=== PATIENT | female | born 1940 | race Caucasian/White ===

== ENCOUNTER → 2016-08-22 | Day surgery (SDC) | payer OTHER, MEDICARE ==
[2016-08-11 12:24] VITALS: Ht 163.8 cm; Wt 79.5 kg
[~2016-08-22] VITALS: Ht 163.8 cm; Wt 79.5 kg
[~2016-08-22] MED LIST: ACET-1256 PO; CHOL1TAB42 PO; CZR50 PO; ISOS30TA3 PO; LPT10 PO; METOPROLOL TARTRATE 1 MG/ML VIAL ONE; PROPOFOL IV EMULSION 10 MG/ML 20 ML VIAL IV ONE; SODIUM CHLORIDE 0.9% 500ML 500 ML IV ONE; TPRSR50 PO; ZNTT/150 PO
[2016-08-22 09:59] VITALS: TEMP 36.6
--- NOTE | 2016-08-22 10:33 | Endo History and Physical ---
History & Physical Date of Service: Aug 22, 2016. Chief Complaint: DYSPHAGIA, REFLUX Referring Physician: DR. CAMERON History of Present Illness 76 yo CF who presents for EGD secondary to dysphagia and GERD. Past Medical History Angioplasty/Stent, Anxiety, Cancer, Hypertension, Thrombophlebitis, Other Past Surgical History Hx Cardiac Surgery: Yes (HEART CATH, STENT X1) Hx Internal Defibrillator: No Hx Pacemaker: No Hx Abdominal Surgery: Yes (D&C X3, SHAWNA BSO, TUBAL LIGATION) Hx of Implantable Prosthesis: No Hx Post-Op Nausea and Vomiting: No Hx Cancer Surgery: Yes (SCC REMOVALS AND MOHS) Hx Thoracic Surgery: No Hx Orthopedic: Yes (LT/RT BALBIR, LT LEG REVISION, LT/RT KNEE SURGERY, LT BUNIONECTOMY, RT WRIST) Hx Urinary Tract Surgery: No (CERVICAL DISCECTOMY (LIMITED L-R)) Family History None Social History Smoking Status: Never Smoker Hx Substance Use: No Hx Alcohol Use: Yes (OCCASIONAL) Allergies Coded Allergies: Codeine (Verified Allergy, Severe, HIVES/DIFFICULTY BREATHING, 08/11/16) Sulfa Drugs (Verified Allergy, Intermediate, GI UPSET AND VIOLENT VOMITING , 08/22/16) Tetanus Toxoids (Verified Allergy, Intermediate, SEVERE HIVES AND THROAT CLOSING, 08/22/16) WITH "LIVE TETANUS" Aspirin (Verified Allergy, Unknown, "EYE HEMORRHAGES", 08/11/16) Atropine (Verified Allergy, Unknown, HEART RACES, 08/11/16) Diazepam (Verified Allergy, Unknown, "PASSED OUT COLD", 08/11/16) Ibuprofen (Verified Allergy, Unknown, "TOLD NOT TO TAKE BECAUSE OF HEART" , 08/11/16) Lidocaine (Verified Allergy, Unknown, UNABLE TO BREATHE, 08/11/16) Penicillins (Verified Allergy, Unknown, HIVES, 08/11/16) Pentazocine (Verified Allergy, Unknown, GI UPSET, 08/11/16) Propoxyphene (Verified Allergy, Unknown, "KNOCKED ME RIGHT OUT", 08/11/16) DARVOCET Uncoded Allergies: NARCOTIC (Adverse Reaction, Intermediate, nausea/vomitng, 06/11/14) Current Medications Reported Home Medications Medications Dose Route/Sig Max Daily Dose Days Date Category Metoprolol Succinate ER (Metoprolol Succinate) 50 Mg Tabcr 1 Tab PO QPM 08/11/16 Reported Atorvastatin Calcium (Atorvastatin) 10 Mg Tab 10 Mg PO QPM 02/15/15 Reported Tylenol (Acetaminophen) 500 Mg Tab 1,000 Mg PO TID PRN 02/15/15 Reported Zantac (Ranitidine HCl) 150 Mg Tab 150 Mg PO QPM 10/27/14 Reported Losartan Potassium 50 Mg Tab 50 Mg PO QAM 07/02/14 Reported Vitamin D (Cholecalciferol) 5,000 Unit Tab 5,000 Units PO QAM 07/02/14 Reported Imdur Ext Rel (Isosorbide Mononitrate) 30 Mg Ertab 30 Mg PO QAM 03/23/11 Reported Vital Signs Weight (Kilograms): 79.55 Height (Feet): 5 Height (Inches): 4.5 Date Time Temp Pulse Resp B/P Pulse Ox O2 Delivery O2 Flow Rate FiO2 08/22/16 09:59 36.6 90 20 148/93 98 Room Air Physical Exam General Appearance: WD/WN, no apparent distress Respiratory/Chest: Auscultation: breath sounds normal Cardiovascular: Heart Auscultation: RRR Abdomen: Bowel Sounds: normal Inspection & Palpation: soft, non-distended, no tenderness, guarding & rebound Assessment and Plan Assessment: 76 yo CF who presents for EGD secondary to dysphagia and GERD. Plan: Proceed with EGD.
--- NOTE | 2016-08-22 10:49 | Discharge Instructions ---
Endoscopy Patient Instructions Date / Procedure(s) Performed Aug 22, 2016. Allergy Information Coded Allergies: Codeine (Verified Allergy, Severe, HIVES/DIFFICULTY BREATHING, 08/11/16) Sulfa Drugs (Verified Allergy, Intermediate, GI UPSET AND VIOLENT VOMITING , 08/22/16) Tetanus Toxoids (Verified Allergy, Intermediate, SEVERE HIVES AND THROAT CLOSING, 08/22/16) WITH "LIVE TETANUS" Aspirin (Verified Allergy, Unknown, "EYE HEMORRHAGES", 08/11/16) Atropine (Verified Allergy, Unknown, HEART RACES, 08/11/16) Diazepam (Verified Allergy, Unknown, "PASSED OUT COLD", 08/11/16) Ibuprofen (Verified Allergy, Unknown, "TOLD NOT TO TAKE BECAUSE OF HEART" , 08/11/16) Lidocaine (Verified Allergy, Unknown, UNABLE TO BREATHE, 08/11/16) Penicillins (Verified Allergy, Unknown, HIVES, 08/11/16) Pentazocine (Verified Allergy, Unknown, GI UPSET, 08/11/16) Propoxyphene (Verified Allergy, Unknown, "KNOCKED ME RIGHT OUT", 08/11/16) DARVOCET Uncoded Allergies: NARCOTIC (Adverse Reaction, Intermediate, nausea/vomitng, 06/11/14) Discharge Date / Findings Aug 22, 2016. Hiatal hernia Reflux esophagitis Esophageal stricture s/p dilation to 17mm Medication Instructions OK to resume all medications today as prescribed Reported Home Medications Medications Dose Route/Sig Max Daily Dose Days Date Category Metoprolol Succinate ER (Metoprolol Succinate) 50 Mg Tabcr 1 Tab PO QPM 08/11/16 Reported Atorvastatin Calcium (Atorvastatin) 10 Mg Tab 10 Mg PO QPM 02/15/15 Reported Tylenol (Acetaminophen) 500 Mg Tab 1,000 Mg PO TID PRN 02/15/15 Reported Zantac (Ranitidine HCl) 150 Mg Tab 150 Mg PO QPM 10/27/14 Reported Losartan Potassium 50 Mg Tab 50 Mg PO QAM 07/02/14 Reported Vitamin D (Cholecalciferol) 5,000 Unit Tab 5,000 Units PO QAM 07/02/14 Reported Imdur Ext Rel (Isosorbide Mononitrate) 30 Mg Ertab 30 Mg PO QAM 03/23/11 Reported Provider Instructions Activity Restrictions - No exercising or heavy lifting for 24 hours. - Do not drink alcohol the day of the procedure. - Do not drive a car or operate machinery until the day after the procedure. - Do not make any important decisions or sign important papers in 24 hours after the procedure. Following Day: - Return to full activity which may include returning to work/school. Diet Start your diet with liquids and light foods (jello, soup, juice, toast). Then eat your usual diet if not nauseated. Treatment For Common After Affects For mild abdominal pain, bloating, or excessive gas: - Rest - Eat lightly - Lie on right side Follow-Up Information Follow-up with DR. CAMERON as scheduled Anesthesia Information What You Should Know You have had a procedure that required some medicine to reduce anxiety and discomfort. This treatment is called moderate sedation. After receiving the treatment, you may be sleepy, but you will be able to breathe on your own. The effects of the treatment may last for several hours. Follow these instructions along with Activity/Diet recommendations noted above: * Do NOT do anything where dizziness or clumsiness would be dangerous. * Rest quietly at home today, then you can be up and about tomorrow. * Have a responsible person stay with you the rest of today. * You may have had an I.V. today. If so, you may take the dressing off later today. Recommendations Call your doctor if: * Trouble breathing * Continuous vomiting for more than 24 hours * Temperature above 101 degrees * Severe abdominal pain or bloating * Pain not relieved by pain medicine ordered * There is increased drainage or redness from any incision * A large amount of rectal bleeding greater than 2-3 tablespoons. (If you had a polyp/s removed or have hemorrhoids, a small amount of blood - from the rectum is to be expected.) * You have any unanswered questions or concerns. IN THE EVENT OF A SERIOUS EMERGENCY, GO TO THE NEAREST EMERGENCY ROOM Your discharge instructions were prepared by provider Lemuel Harrison. Patient Instructions Signature Page Ana Choudhury Patient (or Guardian) Signature/Date: I have read and understand the instructions given to me by my caregivers. Caregiver/RN/Doctor Signature/Date: The above-named patient and/or guardian has received patient instructions on this date. + Original Patient Signature Page (only) stays with chart. Please make copy for patient.
--- NOTE | 2016-08-22 10:53 | GI REPORT ---
Procedure Date: 08/22/2016 10:34 AM Procedure: Upper GI endoscopy Indications: Dysphagia, Gastro-esophageal reflux disease Medicines: Monitored Anesthesia Care Complications: No immediate complications. Estimated Blood Loss: Estimated blood loss: none. Procedure: Pre-Anesthesia Assessment: - Prior to the procedure, a History and Physical was performed, and patient medications and allergies were reviewed. The patient's tolerance of previous anesthesia was also reviewed. The risks and benefits of the procedure and the sedation options and risks were discussed with the patient. All questions were answered, and informed consent was obtained. Prior Anticoagulants: The patient has taken no previous anticoagulant or antiplatelet agents. ASA Grade Assessment: III - A patient with severe systemic disease. After reviewing the risks and benefits, the patient was deemed in satisfactory condition to undergo the procedure. After obtaining informed consent, the endoscope was passed under direct vision. Throughout the procedure, the patient's blood pressure, pulse, and oxygen saturations were monitored continuously. The scope was introduced through the mouth, and advanced to the second part of duodenum. The upper GI endoscopy was accomplished without difficulty. The patient tolerated the procedure well. Findings: One moderate benign-appearing, intrinsic stenosis was found. This measured 1.5 cm (inner diameter) x 1 cm (in length) and was traversed. A guidewire was placed and the scope was withdrawn. Dilation was performed with a Savary dilator with mild resistance at 51 Fr. LA Grade B (one or more mucosal breaks greater than 5 mm, not extending between the tops of two mucosal folds) esophagitis with no bleeding was found. A medium-sized hiatus hernia was present. A few small sessile polyps with no stigmata of recent bleeding were found in the gastric fundus. The examined duodenum was normal. Impression: - Benign-appearing esophageal stenosis. Dilated. - LA Grade B reflux esophagitis. - Medium-sized hiatus hernia. - A few gastric polyps. - Normal examined duodenum. - No specimens collected. Recommendation: - Resume previous diet. - Continue present medications. - Repeat the upper endoscopy PRN for retreatment. - Return to primary care physician as previously scheduled. Lemuel Harrison DO 08/22/2016 10:52:45 AM This report has been signed electronically. Note Initiated On: 08/22/2016 10:34 AM I attest to the content of the Intraoperative Record and orders documented therein, exceptions below
--- NOTE | 2016-08-22 11:08 | Anesthesiology Progress Note ---
Anesthesia Post Op Note Date & Time Aug 22, 2016 at 11:08 Vital Signs Pain Intensity: 0 Vital Signs Past 12 Hours Date Time Temp Pulse Resp B/P Pulse Ox O2 Delivery O2 Flow Rate FiO2 08/22/16 11:00 63 20 115/73 97 Room Air 08/22/16 10:50 68 20 122/66 96 Room Air 08/22/16 09:59 36.6 90 20 148/93 98 Room Air Notes Mental Status: alert / awake / arousable, participated in evaluation Pt Amnestic to Procedure: Yes Nausea / Vomiting: adequately controlled Pain: adequately controlled Airway Patency, RR, SpO2: stable & adequate BP & HR: stable & adequate Hydration State: stable & adequate Anesthetic Complications: no major complications apparent Pt doing well.
[2016-08-22 11:20] VITALS: BP 148/100; PULSE 64; O2SAT 94
== END | disposition home or self-care (01) ==
LOC: C.GI 09:30
PROVIDERS: ATTEND Internal Medicine
DX: K21.0 Gastro-esophageal reflux disease with esophagitis (principal); R13.10 Dysphagia, unspecified; K22.2 Esophageal obstruction; K44.9 Diaphragmatic hernia without obstruction or gangrene; K31.7 Polyp of stomach and duodenum; I10 Essential (primary) hypertension; Z95.5 Presence of coronary angioplasty implant and graft

== ENCOUNTER → 2017-04-10 | Outpatient (CLI) | payer OTHER, MEDICARE ==
[~2017-04-10] MED LIST changes: +GADAVIST IV PRN; -METOPROLOL TARTRATE 1 MG/ML VIAL ONE; -PROPOFOL IV EMULSION 10 MG/ML 20 ML VIAL IV ONE; -SODIUM CHLORIDE 0.9% 500ML 500 ML IV ONE
[2017-04-10 15:36] LABS: BASO % 0.4 %; BASO ABS # 0.02 K/uL (0-0.2); COMPLETE YES; EOS % 1.7 %; HEMATOCRIT 35.8 % (37-47); IG% 0.2 %; LYMPH % 20.7 %; LYMPH ABS # 0.98 K/uL (1.2-3.4); MEAN CORPUSCULAR HEMOGLOBIN 30.4 pg (25-34); MEAN CORPUSCULAR HGB CONC 32.7 g/dl (32-36); MEAN PLATELET VOLUME 10.3 fL (7.4-10.4); MONO % 9.5 %; NEUT % 67.5 %; PLATELET COUNT 237 K/uL (130-400); RED BLOOD COUNT 3.85 M/uL (4.2-5.4); WHITE BLOOD COUNT 4.74 K/uL (4.8-10.8)
--- NOTE | 2017-04-10 16:33 | DIAGNOSTIC IMAGING REPORT ---
MRI OF THE BRAIN WITHOUT AND WITH IV CONTRAST CLINICAL HISTORY: R41.3 Memory loss or [id number] Abnormality of [id number] SKIN CARCINOMA COMPARISON STUDY: Noncontrast head CT dated 02/15/2015 TECHNIQUE: MRI of the brain was performed from the vertex to the skull base utilizing various T1 and T2 weighted sequences. Following the IV administration of 7.8 mL of Gadavist contrast, additional enhanced images were obtained. FINDINGS: Sagittal T1, axial diffusion, proton density and T2 weighted axial, coronal FLAIR, and pre and post axial T1-weighted images were acquired. These were supplemented with post gadolinium coronal T1 weighted images. No intra or extra-axial mass lesions are visualized. Axial diffusion-weighted images reveal no evidence of acute or subacute infarction. There is mild ventricular dilatation, likely secondary to volume loss Proton density T2-weighted and FLAIR images reveal scattered foci of increased T2 signal within the white matter, likely on a small vessel basis. There are no abnormal flow voids. There is no evidence of pathologic enhancement. IMPRESSION: No acute intracranial findings. Age-related involutional changes. No evidence of acute or subacute infarction. No evidence of intracranial mass. Electronically signed by: Zac Ennis M.D. 04/10/2017 4:32 PM Dictated Date/Time: 04/10/2017 4:30 PM
[2017-04-10 16:42] LABS: LYME DISEASE AB IGG NEG (NEG)
[2017-04-10 16:48] LABS: LYME DISEASE AB IGM POS (NEG)
[2017-04-10 16:55] LABS: BLOOD UREA NITROGEN 20 mg/dl (7-18); CREATININE 0.59 mg/dl (0.60-1.20); GLUCOSE 92 mg/dl (70-99)
[2017-04-10 16:56] LABS: ALKALINE PHOSPHATASE 64 U/L (45-117); ALT/SGPT 24 U/L (12-78); AST/SGOT 12 U/L (15-37); BUN/CREATININE RATIO 33.3 (10-20); CALCIUM 8.6 mg/dl (8.5-10.1); CARBON DIOXIDE 28 mmol/L (21-32); CHLORIDE 102 mmol/L (98-107); POTASSIUM 3.8 mmol/L (3.5-5.1); SODIUM 136 mmol/L (136-145)
== END | disposition home or self-care (01) ==
LOC: C.MRI 13:48
PROVIDERS: ATTEND Psychiatry & Neurology Neurology
DX: R41.3 Other amnesia (principal); R26.9 Unspecified abnormalities of gait and mobility; S09.90XD Unspecified injury of head, subsequent encounter; X58.XXXD Exposure to other specified factors, subsequent encounter

== ENCOUNTER → 2017-05-17 | Outpatient (CLI) | payer OTHER, MEDICARE ==
[~2017-05-17] MED LIST changes: -GADAVIST IV PRN; +METO25TA3 PO; +OXYB5TAB PO; +PANT40TA PO; +RANI150T85 PO; -ZNTT/150 PO
== END | disposition home or self-care (01) ==
LOC: C.LABSPEC 17:01
PROVIDERS: ATTEND Nurse Practitioner Adult Health
DX: R39.15 Urgency of urination (principal)

== ENCOUNTER → 2017-06-08 | Outpatient (CLI) | payer OTHER, MEDICARE ==
[~2017-06-08] MED LIST changes: -METO25TA3 PO; -OXYB5TAB PO; -PANT40TA PO; -RANI150T85 PO; +ZNTT/150 PO
--- NOTE | 2017-06-08 16:04 | DIAGNOSTIC IMAGING REPORT ---
LUMBAR SPINE MRI HISTORY: LUMBAR PAIN TECHNIQUE: Multiplanar multisequence MRI of the lumbar spine was performed without the use of contrast. COMPARISON: Lumbar spine CT 02/15/2015. FINDINGS: For the purpose of the report the L5-S1 disc space will be located on axial image 23 of 25. Moderate levoscoliosis, unchanged. Moderate to space are at L1-L2 and L5-S1. Moderate to severe disc space narrowing at L2-L3, L3-L4, L4-L5. Moderate to severe facet osteoarthritis within the mid to lower lumbar spine. Partially visualized 2 cm exophytic cyst within the right kidney. The conus terminates at the L1-L2 disc space level. No fractures within the lumbar spine. There is 4 mm of anterolisthesis of L5 on S1, unchanged. L1-L2: Broad-based posterior disc bulge with ligamentum and facet hypertrophy resulting in moderate central canal and moderate left neural foraminal narrowing. There are severe right neural foraminal narrowing. L2-L3: Small broad-based posterior disc bulge with facet hypertrophy resulting in mild central canal narrowing. There is moderate to severe right-sided neural foraminal narrowing. L3-L4: Broad-based posterior disc bulge with ligamentum and facet hypertrophy resulting in severe central canal and severe right-sided neural foraminal narrowing. There is moderate left-sided neural foraminal narrowing. The central canal measures a maximal diameter of 4.5 mm. L4-L5: Small broad-based posterior disc bulge resulting in mild central canal and mild right-sided neural foraminal narrowing. There is moderate to severe left-sided neural foraminal narrowing. L5-S1: Small broad-based posterior disc bulge resulting in mild central canal and mild right neural foraminal narrowing. There is moderate to severe left-sided neural foraminal narrowing. IMPRESSION: 1. No fractures identified within the lumbar spine. 2. Stable grade I anterolisthesis of L5 on S1. 3. Advanced degenerative changes as described above with multilevel central canal or neural foraminal narrowing. This is most pronounced at the L3-L4 level. 4. Moderate levoscoliosis. Electronically signed by: Larry Chavez M.D. 06/08/2017 4:03 PM Dictated Date/Time: 06/08/2017 3:54 PM
== END | disposition home or self-care (01) ==
LOC: C.MRIBC 14:51
PROVIDERS: ATTEND Psychiatry & Neurology Neurology
DX: M43.16 Spondylolisthesis, lumbar region (principal); M47.26 Other spondylosis with radiculopathy, lumbar region; M48.061 Spinal stenosis, lumbar region without neurogenic claudication; M51.36 Other intervertebral disc degeneration, lumbar region; M41.80 Other forms of scoliosis, site unspecified

== ENCOUNTER → 2017-06-20 | Outpatient (CLI) | payer OTHER, MEDICARE | END | disposition home or self-care (01) | LOC: C.PAPS 14:52 | PROVIDERS: ATTEND Obstetrics & Gynecology | DX: Z12.72 Encounter for screening for malignant neoplasm of vagina (principal); Z90.710 Acquired absence of both cervix and uterus ==

== ENCOUNTER → 2017-09-11 | Outpatient (CLI) | payer OTHER, MEDICARE ==
[~2017-09-11] MED LIST changes: +METO25TA3 PO; +PANT40TA PO; +RANI150T85 PO; -ZNTT/150 PO
[2017-09-11 10:04] LABS: BASO % 0.6 %; BASO ABS # 0.02 K/uL (0-0.2); EOS % 2.4 %; EOS ABS # 0.08 K/uL (0-0.5); HEMATOCRIT 35.2 % (37-47); HEMOGLOBIN 12.1 g/dL (12.0-16.0); LYMPH % 24.9 %; LYMPH ABS # 0.82 K/uL (1.2-3.4); MEAN CELL VOLUME 88.4 fL (80-100); MEAN CORPUSCULAR HEMOGLOBIN 30.4 pg (25-34); MEAN CORPUSCULAR HGB CONC 34.4 g/dl (32-36); MEAN PLATELET VOLUME 9.8 fL (7.4-10.4); MONO % 10.6 %; MONO ABS # 0.35 K/uL (0.11-0.59); NEUT % 61.5 %; NEUT ABS # 2.02 K/uL (1.4-6.5); PLATELET COUNT 251 K/uL (130-400); RED CELL DISTRIBUTION WIDTH CV 13.9 % (11.5-14.5); RED CELL DISTRIBUTION WIDTH SD 45.5 fL (36.4-46.3); WHITE BLOOD COUNT 3.29 K/uL (4.8-10.8)
--- NOTE | 2017-09-11 10:32 | DIAGNOSTIC IMAGING REPORT ---
DOUBLE CONTRAST BARIUM ESOPHAGRAM CLINICAL HISTORY: Hiatal hernia. COMPARISON STUDY: No priors.. TECHNIQUE: A standard air contrast barium esophagram is performed. Multiple spot images of the esophagus are acquired both upright and prone. FINDINGS: The patient swallowed barium and the barium pill without difficulty. The mucosal pattern is normal. Mild to moderate dysmotility is seen in the mid to distal esophagus. There is no evidence of intrinsic or extrinsic mass lesion. No aspiration was seen. The gastroesophageal junction distended normally. No gastroesophageal reflux could be elicited by having the patient perform the Valsalva maneuver. A small hiatal hernia is noted. Extensive fusion hardware is seen throughout the cervical spine. Fluoroscopy time: 1.3 minutes. Fluoroscopic images: 21 IMPRESSION: 1. Esophageal dysmotility. The esophagus is otherwise normal in appearance. 2. Small hiatal hernia. Electronically signed by: Mitesh Monk M.D. 09/11/2017 10:31 AM Dictated Date/Time: 09/11/2017 10:28 AM
[2017-09-11 10:33] LABS: BLOOD UREA NITROGEN 15 mg/dl (7-18); CARBON DIOXIDE 22 mmol/L (21-32); CREATININE 0.63 mg/dl (0.60-1.20); GLUCOSE 102 mg/dl (70-99); POTASSIUM 3.7 mmol/L (3.5-5.1); SODIUM 135 mmol/L (136-145)
== END | disposition home or self-care (01) ==
LOC: C.RAD 09:14
PROVIDERS: ATTEND Physician Assistant
DX: K44.9 Diaphragmatic hernia without obstruction or gangrene (principal)

== ENCOUNTER 2017-09-20 05:53 | Observation (INO) | payer OTHER, MEDICARE ==
[2017-09-12 16:06] VITALS: BMI 26.0
[2017-09-20] VITALS (7 sets, daily range): BP systolic 123–187; BP diastolic 72–109; PULSE 74–85; TEMP 36.4–36.6; O2SAT 94–97; Ht 167.6 cm; Wt 76.0 kg
[~2017-09-20] VITALS: Ht 167.6 cm; Wt 76.0 kg
[~2017-09-20 05:53] MED LIST changes: -TPRSR50 PO
[2017-09-20] MEDS ORDERED: LACTATED RINGER'S 1000ML 1,000 ML IV SCH (06:00)
[2017-09-20] MEDS ORDERED: OXYB5TAB PO (06:30)
--- NOTE | 2017-09-20 06:31 | History & Physical Bridge Note ---
H&P Re-Evaluation Bridge Note: I have examined the patient, reviewed the History & Physical and in the interval since the performance of the History & Physical I have noted the following changes of clinical significance: No changes noted
[2017-09-20] MEDS ORDERED: MIDAZOLAM HCL 1 MG/ML 2ML VIAL ONE (06:43)
[2017-09-20] MEDS ORDERED: PHENYLEPHRINE HCL INJ 10 MG/ML VIAL ONE (06:43)
[2017-09-20] MEDS ORDERED: LIDOCAINE HCL 2% 2 ML VIAL (20MG/ML) ONE (06:43)
[2017-09-20] MEDS ORDERED: PROPOFOL IV EMULSION 10 MG/ML 20 ML VIAL ONE ×2 (06:43→08:07)
[2017-09-20] MEDS ORDERED: NEOSTIGMINE METHYLSULFATE 5 MG/5 ML SYR ONE (06:43)
[2017-09-20] MEDS ORDERED: GLYCOPYRROLATE INJ 0.2 MG/ML VIAL ONE (06:43)
[2017-09-20] MEDS ORDERED: FENTANYL CITRATE INJ 50 MCG/1 ML 2 ML VIAL ONE ×4 (06:43→12:29)
[2017-09-20] MEDS ORDERED: ROCURONIUM BROMIDE 10 MG/ML 5 ML VIAL ONE ×3 (06:43→08:54)
[2017-09-20] MEDS ORDERED: DEXAMETHASONE SOD INJ 4 MG/ML VIAL ONE (06:43)
[2017-09-20] MEDS ORDERED: EpHEDrine SULFATE INJ 50 MG/ML AMP ONE (06:43)
[2017-09-20] MEDS ORDERED: ONDANSETRON INJ 2 MG/ML 2 ML VIAL ONE (06:43)
[2017-09-20] MEDS ORDERED: LABETALOL HCL IV 5 MG/ML 20ML ONE (08:43)
--- NOTE | 2017-09-20 10:59 | [facility] Post Operative Brief Note ---
Immediate Operative Summary Operative Date September 20, 2017. Pre-Operative Diagnosis Hiatal Hernia Post-Operative Diagnosis Same Procedure(s) Performed Robotic assisted Laparoscopic repair of hiatal Hernia with Reinforced using Ovitex Patch Toupet partial fundoplication Esophagogastroduodenoscopy Surgeon Dr Hardy Dispatcher Clerk Surgeon(s) Geovany Bowles PA-C Estimated Blood Loss 20ml Findings Consistent with Post-Op Diagnosis Specimens A. Hernia sac B. Gastro esophageal fat pad Drains None Anesthesia Type General
[2017-09-20] MEDS ORDERED: METOCLOPRAMIDE HCL INJ 5 MG/ML 2 ML VIAL IV. STA (11:15)
[2017-09-20] MEDS ORDERED: ONDANSETRON INJ 2 MG/ML 2 ML VIAL IV PRN ×2 (11:15→11:45)
[2017-09-20] MEDS ORDERED: MEPERIDINE HCL 25 MG/ML CARP IV PRN (11:45)
[2017-09-20] MEDS ORDERED: FENTANYL CITRATE INJ 50 MCG/1 ML 2 ML VIAL IV PRN (11:45)
[2017-09-20] MEDS ORDERED: LABETALOL HCL IV 5 MG/ML 20ML IV PRN (11:45)
[2017-09-20] MEDS ORDERED: HYDROmorphone INJ 0.5 MG/0.5 ML SYR IV PRN (11:45)
[2017-09-20] MEDS ORDERED: EpHEDrine SULFATE INJ 50 MG/ML AMP IV PRN (11:45)
[2017-09-20] MEDS ORDERED: NITROGLYCERIN 0.4 MG SL PER TAB CHARGE ONE (12:55)
[2017-09-20] MEDS ORDERED: NITROGLYCERIN 2% OINTMENT 30GM TUBE EXT ONE ×2 (13:21→14:00)
[2017-09-20] MEDS ORDERED: HYDROmorphone INJ 2 MG/ML SYR/VIAL ONE (13:29)
--- NOTE | 2017-09-20 13:45 | DIAGNOSTIC IMAGING REPORT ---
CHEST ONE VIEW PORTABLE CLINICAL HISTORY: 77 years-old Female presenting with chest pain. TECHNIQUE: Portable upright AP view of the chest was obtained. COMPARISON: 07/02/2014. FINDINGS: Atherosclerosis of the aortic arch. Cardiac silhouette normal in size. Heterogeneity of lung parenchyma. Minimal linear opacities at the right lung base and left midlung. Minimal right apical opacities also suggested, which likely relates to superimposed soft tissue emphysema. No large pleural effusion or pneumothorax. Soft tissue emphysema noted at the right base of the neck with redemonstration of postsurgical changes of anterior cervical fusion hardware. Redemonstration of buttress plate and screw fixation of the left humerus. Upper abdomen normal. IMPRESSION: 1. Soft tissue emphysema at the right base of the neck. Although no pneumomediastinum is grossly apparent, the etiology of soft tissue in the neck is uncertain. Correlate clinically for recent intervention. If no intervention was performed, consider contrast-enhanced chest CT for further evaluation. 2. Cardiomegaly. No evidence of volume overload or pulmonary edema. 3. Heterogeneity of lung parenchyma could suggest underlying emphysema. 4. Scattered linear opacities at the right lung base and left midlung may represent atelectasis or scarring. Electronically signed by: Sam Chao M.D. 09/20/2017 1:44 PM Dictated Date/Time: 09/20/2017 1:41 PM
[2017-09-20] MEDS ORDERED: METOPROLOL TARTRATE 1 MG/ML VIAL ONE (14:08)
--- NOTE | 2017-09-20 14:28 | Anesthesiology Progress Note ---
Anesthesia Post Op Note Date & Time September 20, 2017 at 14:19 Vital Signs Pain Intensity: 7 Vital Signs Past 12 Hours Date Time Temp Pulse Resp B/P (MAP) Pulse Ox O2 Delivery O2 Flow Rate FiO2 09/20/17 14:11 76 171/95 09/20/17 13:45 72 16 153/91 100 Oxymask 10 09/20/17 13:35 72 16 166/100 100 Oxymask 10 09/20/17 13:25 36.2 73 16 191/97 100 Oxymask 10 09/20/17 13:15 75 16 189/103 100 Oxymask 10 09/20/17 13:05 70 16 189/106 100 Oxymask 10 09/20/17 12:55 68 16 174/97 100 Oxymask 10 09/20/17 12:45 71 16 180/87 100 Oxymask 10 09/20/17 12:35 67 16 166/90 100 Oxymask 10 09/20/17 12:25 67 16 172/94 100 Oxymask 10 09/20/17 12:15 36.2 69 16 152/81 100 Nasal Cannula 4 09/20/17 12:05 36.2 72 16 177/90 100 Oxymask 10 09/20/17 11:55 68 16 144/94 97 Oxymask 10 09/20/17 11:45 70 16 173/96 99 Oxymask 10 09/20/17 11:35 69 16 156/87 99 Oxymask 10 09/20/17 11:26 36.0 63 16 146/84 95 Oxymask 10 09/20/17 06:32 36.6 80 20 149/92 (111) 95 Room Air Notes Mental Status: alert / awake / arousable, participated in evaluation Pt Amnestic to Procedure: Yes Nausea / Vomiting: adequately controlled Pain: adequately controlled Airway Patency, RR, SpO2: stable & adequate BP & HR: stable & adequate Hydration State: stable & adequate Anesthetic Complications: no major complications apparent Pt had laparoscopic Jacinto fundoplication under GA without incident. After arrival in PACU, pt c/o chest pain and dyspnea. She described pain as severe and squeezing. 12 - lead EKG done showed no change from baseline. Sublingual nitroglycerin was given without noticeable relief. Dr. Dey (mud worker) was consulted. Dr. Dey did repeat EKG, CXR and echocardiogram and diagnosed that symptoms were not due to myocardial ischemia. There was subcutaneous emphysema on CXR which Dr. Hardy stated is expected after this surgery. Pt has received narcotic and chest pain has diminished. Dr. Dey referred case to Hospitalist and transfer to PCU is planned.
--- NOTE | 2017-09-20 14:50 | CARDIOLOGY CONSULTATION ---
DATE OF CONSULTATION: 09/20/2017 REFERRING DOCTOR: Dre Hardy M.D. INDICATIONS: Postoperative chest pain. HISTORY OF PRESENT ILLNESS: The patient is a 76-year-old female who underwent laparoscopic fundoplication today and developed severe substernal chest pain and discomfort in the PACU. She is referred urgently for evaluation. Her past medical history is notable for stable coronary artery disease. Please refer to extensive outpatient consultation by Dr. Anthony on the chart from 12/26/2016. Her underlying medical list includes a history of prior coronary intervention in the remote past, stable angina pectoris per records, history of hypertension on multiple drug regimen, chronic degenerative joint disease and back pain, dyslipidemia, esophageal reflux, kyphoscoliosis. The patient seen in the PACU where she is complaining of severe pain in the chest and abdomen, described as heavy heart pressure pain. Procedural notes were reviewed. The patient did require therapies intraoperatively for hypertension including 30 mg IV labetalol with a superimposed 200 mg of phenylephrine and 4 mg of Zofran. The patient was assessed in the recovery area. The patient is complaining of pain and discomfort. EKGs done during acute throes of discomfort demonstrated no EKG change from baseline on two separate testings. Echocardiogram performed at bedside demonstrates preserved LV function without wall motion abnormality. There is no pericardial effusion. Aortic root appears intact without enlargement or dilatation. On initial preliminary review, blood pressures were elevated and she is now on my request received additional pain medication as well as 5 mg IV labetalol and 1 inch of topical nitrate. The patient remained somewhat sedate, was unable to offer additional information. ALLERGIES: Multiple and include listing of ASPIRIN, ATROPINE, CODEINE, DIAZEPAM, IBUPROFEN, LIDOCAINE, PENICILLIN, PENTAZOCINE, PROPOXYPHENE, SULFA AND TETANUS. MEDICATIONS: Per list included atorvastatin 10 mg q.p.m., vitamin D 5000 units q.p.m., isosorbide 30 mg q.a.m., losartan 50 mg q.a.m., metoprolol succinate 25 mg q.a.m., oxybutynin 5 mg p.o. every day, Protonix 40 mg q.a.m., Zantac 150 mg q.p.m. Note, the patient did not receive losartan or metoprolol today. For past surgical, family, and social history, please refer to outpatient consultation on chart. PHYSICAL EXAMINATION: VITAL SIGNS: Heart rate 74, blood pressure is 160/100. HEENT: Normocephalic and atraumatic. NECK: Thin. There is no distinct jugular venous distention. The patient is still some sedate, but will answer questions, complaining of discomfort, improving after initial therapies. LUNGS: Clear to auscultation. CARDIOVASCULAR: Regular. There is no S3 gallop. ABDOMEN: Soft, quiet bowel sounds. There is minimal distention. EXTREMITIES: Without cyanosis or clubbing. There is no edema. DATA: EKGs done in the PACU, done at 12:49 revealed sinus rhythm with nonspecific ST segment changes in the lateral leads and repeat on at 1317 with severe pain again demonstrates sinus rhythm with first degree AV block and nonspecific ST changes in the lateral leads in comparison to last EKG done 12/2016. There are no acute ST segment changes or findings. Echocardiogram performed at bedside during symptoms demonstrates preserved LV function, no wall motion abnormalities, no significant valvular disease, no pericardial effusion. Aortic root is intact. Full interpretation to be followed. IMPRESSION: A 77-year-old female presents with on acute consultation in the PACU after undergoing laparoscopic fundoplication developing severe, chest pain, without overt evidence of myocardial ischemia by EKG echocardiographic criteria lab. It has been ordered as well as chest x-ray as described, hypertension will be treated. She was given an additional dose of metoprolol, topical nitrates will be continued as well as metoprolol 2.5 q. 6 hours. and further evaluation of surgical issues should be assessed. Consider CT scan of chest, abdomen if symptoms persist. Refer to hospitalist and primary surgical consultation process. No cardiac issues acutely. NERY
--- NOTE | 2017-09-20 15:10 | ECHOCARDIOGRAM REPORT ---
*NOTICE TO RECEIVING REPUBLICAN AGENCY This information is strictly Confidential and protected under [place] law. [place] law prohibits you from making any further disclosure of this information unless further disclosure is expressly permitted by the written consent of the person to whom it pertains or is authorized by law. A general authorization for the release of medical or other information is not sufficient for this purpose. Hospital accepts no responsibility if the information is made available to any other person, INCLUDING THE PATIENT. Interpretation Summary * Name: JARETT MIRELES Study Date: 09/20/2017 01:27 PM BP: 153/91 mmHg * Patient Location: PACU HR: 74 * : 1940 (M/d/yyyy) Gender: Female Height: 66 in * Age: 77 yrs Ethnicity: [place] Weight: 160 lb * Ordering Physician: Vazquez Dey MD, [facility] * Performed By: Yvonne Aguilera RDCS * * Reason For Study: Chest pain * BSA: 1.8 m2 * -- Conclusions -- * The left ventricle is normal in size. * There is mild concentric left ventricular hypertrophy. * Ejection Fraction = 60-65%. * Left ventricular systolic function is normal. * The left ventricular wall motion is normal. * Aortic valve sclerosis moderate, without significant aortic valvular stenosis. * The aortic root is normal size. * There is no pericardial effusion. Procedure Details * A complete two-dimensional transthoracic echocardiogram was performed (2D, M-mode, Doppler and color flow Doppler). Left Ventricle * The left ventricle is normal in size. * There is mild concentric left ventricular hypertrophy. * Ejection Fraction = 60-65%. * Left ventricular systolic function is normal. * The left ventricular wall motion is normal. Right Ventricle * The right ventricle is normal in size and function. Atria * The left atrial size is normal. * Right atrial size is normal. * No ASD detected; PFO is not assessed. Mitral Valve * The mitral valve is normal. * There is no mitral valve stenosis. * There is trace mitral regurgitation. Tricuspid Valve * The tricuspid valve is normal. * There is no tricuspid stenosis. * There is trace tricuspid regurgitation. Aortic Valve * The aortic valve is trileaflet. * Aortic valve sclerosis moderate, without significant aortic valvular stenosis. * No aortic regurgitation is present. Pulmonic Valve * The pulmonic valve is not well visualized. Great Vessels * The aortic root is normal size. Pericardium/Pleural * There is no pericardial effusion. Great Vessels * Normal inferior vena cava diameter and respiratory variation suggests normal central venous pressure. Left Ventricular Diastolic Function * Grade I diastolic dysfunction, (abnormal relaxation pattern). MMode 2D Measurements and Calculations IVSd 1.3 cm LVIDd 3.8 cm LVIDs 2.5 cm LVPWd 1.3 cm IVS/LVPW 0.98 FS 34.9 % EDV(Teich) 62.6 ml ESV(Teich) 22.0 ml EF(Teich) 64.9 % EDV(cubed) 55.6 ml ESV(cubed) 15.3 ml EF(cubed) 72.4 % LV mass(C)d 168.8 grams LV mass(C)dI 92.8 grams/m\S\2 SV(Teich) 40.7 ml SI(Teich) 22.3 ml/m\S\2 SV(cubed) 40.3 ml SI(cubed) 22.2 ml/m\S\2 Ao root diam 3.2 cm Ao root area 8.1 cm\S\2 ACS 1.6 cm asc Aorta Diam 2.9 cm LVOT diam 2.0 cm LVOT area 3.3 cm\S\2 LVAd ap4 23.4 cm\S\2 LVLd ap4 7.3 cm EDV(MOD-sp4) 65.1 ml EDV(sp4-el) 64.2 ml LVAs ap4 13.4 cm\S\2 LVLs ap4 6.2 cm ESV(MOD-sp4) 25.3 ml ESV(sp4-el) 24.4 ml EF(MOD-sp4) 61.1 % EF(sp4-el) 61.9 % LVAd ap2 21.9 cm\S\2 LVLd ap2 7.1 cm EDV(MOD-sp2) 55.7 ml EDV(sp2-el) 57.3 ml LVAs ap2 11.4 cm\S\2 LVLs ap2 5.9 cm ESV(MOD-sp2) 20.4 ml ESV(sp2-el) 18.7 ml EF(MOD-sp2) 63.3 % EF(sp2-el) 67.3 % LVLd %diff -2.71 % EDV(MOD-bp) 61.2 ml LVLs %diff -4.60 % ESV(MOD-bp) 22.5 ml EF(MOD-bp) 63.3 % SV(MOD-sp4) 39.8 ml SI(MOD-sp4) 21.9 ml/m\S\2 SV(MOD-sp2) 35.3 ml SI(MOD-sp2) 19.4 ml/m\S\2 SV(MOD-bp) 38.7 ml SI(MOD-bp) 21.3 ml/m\S\2 SV(sp4-el) 39.8 ml SI(sp4-el) 21.9 ml/m\S\2 SV(sp2-el) 38.6 ml SI(sp2-el) 21.2 ml/m\S\2 Doppler Measurements and Calculations MV E max kofi 75.0 cm/sec MV A max kofi 95.4 cm/sec MV E/A 0.79 Ao V2 max 110.6 cm/sec Ao max PG 4.9 mmHg Ao max PG (full) 1.5 mmHg RONALD(V,A) 2.7 cm\S\2 RONALD(V,D) 2.7 cm\S\2 LV V1 max PG 3.4 mmHg LV V1 max 91.7 cm/sec PA V2 max 70.7 cm/sec PA max PG 2.0 mmHg PA acc slope 270.6 cm/sec\S\2 PA acc time 0.16 sec TR max kofi 100.9 cm/sec PA pr(Accel) 8.2 mmHg
--- NOTE | 2017-09-20 15:25 | History and Physical ---
History & Physical Date & Time of Service: September 20, 2017 at 15:04 Chief Complaint: Hiatal Hernia Primary Care Physician: Sophia Gaines DO History of Present Illness Source: patient, clinic records, hospital records This is a 77yo F with a PMH of CAD (s/p stents), HTN, HLD, diaphragmatic hernia and other medical problems listed below who is POD #0 s/p laparoscopic Jacinto fundoplication by Dr. Hardy. Post operatively, patient developed chest pain and heaviness in the PACU. Cardio was consulted and Dr. Dey evaluated patient in PACU. EKG was performed and showed no changes from baseline. Echo was performed at bedside and showed preserved EF of 60-65%. No wall motion abnormality, aortic root is normal size and no pericardial effusion. Also had post-op HTN elevated to 191/97. Was given 5 mg IV labetalol, 1 inch of nitro paste and additional pain medication. Patient evaluated by photo optics technician Dr. Morelos but determined to be stable for transfer to telemetry. Patient drowsy from pain medication but states that chest pain has subsided. No radiation to neck or arms. Endorses continued nausea. Was given zofran intraoperatively and reglan post-operatively. Denies lightheadedness, headache, confusion, neck pain, palpitations, SOB, abdominal pain, vomiting, numbness/ tingling in extremities. Follows with PCP Dr. Gaines. Past Medical/Surgical History Medical Problems: Medical Problems: (1) CAD (coronary artery disease) Permanent Comment: s/p LAD stent 2002 Status: Chronic (2) Diaphragmatic hernia Status: Chronic (3) Displacement of lumbar intervertebral disc Status: Chronic (4) GERD (gastroesophageal reflux disease) Status: Chronic (5) History of basal cell carcinoma Status: Chronic (6) History of squamous cell carcinoma Status: Chronic (7) History of subdural hemorrhage Status: Chronic (8) History of uterine prolapse Status: Chronic (9) HLD (hyperlipidemia) Status: Chronic (10) HTN (hypertension) Status: Chronic (11) Osteoarthritis Status: Chronic (12) Osteoporosis Status: Chronic (13) Spinal stenosis Status: Chronic Surgical Problems: (1) H/O arthroscopic knee surgery Status: Chronic (2) History of cervical spinal arthrodesis Status: Chronic (3) History of dilation and curettage Status: Chronic (4) History of open reduction and internal fixation (ORIF) procedure Permanent Comment: for left humerus fracture Status: Chronic (5) History of total hysterectomy Status: Chronic (6) History of total right hip replacement Status: Chronic (7) S/P cardiac cath Permanent Comment: stent in LAD at [place] 2003 Status: Chronic (8) S/P tonsillectomy and adenoidectomy Status: Chronic Social History Problems: (1) Scoliosis Status: Chronic Family History Cancer Heart disease Hypertension Social History Smoking Status: Never Smoker Drug Use: none Marital Status: single Housing status: lives alone Occupational Status: retired Immunizations History of Influenza Vaccine: Unknown History of Tetanus Vaccine?: Unknown History of Pneumococcal: Unknown History of Hepatitis B Vaccine: Unknown Allergies Coded Allergies: Codeine (Verified Allergy, Severe, HIVES/DIFFICULTY BREATHING, 09/20/17) Sulfa Drugs (Verified Allergy, Intermediate, GI UPSET AND VIOLENT VOMITING , 09/20/17) Tetanus Toxoids (Verified Allergy, Intermediate, SEVERE HIVES AND THROAT CLOSING, 09/20/17) WITH "LIVE TETANUS" Aspirin (Verified Allergy, Unknown, "EYE HEMORRHAGES", 09/20/17) Atropine (Verified Allergy, Unknown, HEART RACES, 09/20/17) Diazepam (Verified Allergy, Unknown, "PASSED OUT COLD",RASH, 09/20/17) Ibuprofen (Verified Allergy, Unknown, "TOLD NOT TO TAKE BECAUSE OF HEART" , 09/20/17) Lidocaine (Verified Allergy, Unknown, UNABLE TO BREATHE, 09/20/17) Penicillins (Verified Allergy, Unknown, HIVES, 09/20/17) Pentazocine (Verified Allergy, Unknown, GI UPSET, 09/20/17) Propoxyphene (Verified Allergy, Unknown, "KNOCKED ME RIGHT OUT", 09/20/17) DARVOCET Home Medications Scheduled Atorvastatin (Lipitor), 10 MG PO QPM Cholecalciferol (Vitamin D), 5,000 UNITS PO QPM Isosorbide Mononitrate Ext Rel (Imdur Ext Rel), 30 MG PO QAM Losartan Potassium (Losartan Potassium), 50 MG PO QPM Metoprolol Succ (Toprol Xl) (Toprol-Xl), 25 MG PO QAM Oxybutynin Chloride (Oxybutynin Chloride Er), 1 TAB PO DAILY Pantoprazole (Protonix), 40 MG PO QAM Ranitidine (Zantac), 150 MG PO QPM Scheduled PRN Acetaminophen (Tylenol), 1,000 MG PO TID PRN for Pain Review of Systems Ten systems reviewed and negative except as noted in the HPI. Physical Exam Vital Signs Date Time Temp Pulse Resp B/P (MAP) Pulse Ox O2 Delivery O2 Flow Rate FiO2 09/20/17 14:45 36.2 78 14 160/82 98 Nasal Cannula 4 09/20/17 14:35 77 14 160/82 99 Nasal Cannula 4 09/20/17 14:25 74 14 167/96 99 Nasal Cannula 4 09/20/17 14:15 75 18 161/95 99 Nasal Cannula 4 09/20/17 14:11 76 171/95 09/20/17 14:00 75 14 164/93 100 Nasal Cannula 4 09/20/17 13:45 72 16 153/91 100 Oxymask 10 09/20/17 13:35 72 16 166/100 100 Oxymask 10 09/20/17 13:25 36.2 73 16 191/97 100 Oxymask 10 09/20/17 13:15 75 16 189/103 100 Oxymask 10 09/20/17 13:05 70 16 189/106 100 Oxymask 10 09/20/17 12:55 68 16 174/97 100 Oxymask 10 09/20/17 12:45 71 16 180/87 100 Oxymask 10 09/20/17 12:35 67 16 166/90 100 Oxymask 10 09/20/17 12:25 67 16 172/94 100 Oxymask 10 09/20/17 12:15 36.2 69 16 152/81 100 Nasal Cannula 4 09/20/17 12:05 36.2 72 16 177/90 100 Oxymask 10 09/20/17 11:55 68 16 144/94 97 Oxymask 10 09/20/17 11:45 70 16 173/96 99 Oxymask 10 09/20/17 11:35 69 16 156/87 99 Oxymask 10 09/20/17 11:26 36.0 63 16 146/84 95 Oxymask 10 09/20/17 06:32 36.6 80 20 149/92 (111) 95 Room Air General Appearance: WD/WN, no apparent distress, + pertinent finding (Drowsy but able to follow commands ) Head: normocephalic, atraumatic Eyes: normal inspection, PERRL, sclerae normal ENT: normal ENT inspection, hearing grossly normal, pharynx normal Neck: supple, thyroid normal, trachea midline Respiratory/Chest: chest non-tender, lungs clear, normal breath sounds, no respiratory distress, no accessory muscle use Cardiovascular: regular rate, rhythm, no murmur, normal peripheral pulses Abdomen/GI: non tender, soft, no organomegaly, + pertinent finding (Multiple laparoscopic surgical dressings--clean, dry, intact. ) Back: normal inspection Extremities/Musculoskelatal: normal inspection, no calf tenderness, no pedal edema Neurologic/Psych: no motor/sensory deficits, alert, normal mood/affect, oriented x 3 Skin: normal color, warm/dry Diagnostics Laboratory Results Results Past 24 Hours Test 09/20/17 14:29 Range/Units Diagnostic Radiology CXR: IMPRESSION: 1. Soft tissue emphysema at the right base of the neck. Although no pneumomediastinum is grossly apparent, the etiology of soft tissue in the neck is uncertain. Correlate clinically for recent intervention. If no intervention was performed, consider contrast-enhanced chest CT for further evaluation. 2. Cardiomegaly. No evidence of volume overload or pulmonary edema. 3. Heterogeneity of lung parenchyma could suggest underlying emphysema. 4. Scattered linear opacities at the right lung base and left midlung may represent atelectasis or scarring. EKG Normal sinus rhythm ST & T wave abnormality, consider inferolateral ischemia Repeat EKG: Sinus rhythm with 1st degree A-V block T wave abnormality, consider inferolateral ischemia No change from prior EKG Impression Assessment and Plan This is a 77yo F with a PMH of CAD (s/p stents), HTN, HLD, diaphragmatic hernia and other medical problems listed below who is POD #0 s/p laparoscopic Jacinto fundoplication and developed post-operative chest pain. Chest pain: -Following laparoscopic Jacinto fundoplication today -Cardio evaluated patient at bedside in PACU -ACS risk factors include: CAD (s/p stents), HTN, HLD -Pain resolved with nitro paste, additional pain medication -EKG x [address] changes -Bedside echo showed preserved EF of 60-65%. No wall motion abnormality, aortic root is normal size and no pericardial effusion -Initial troponin negative -Trend troponin -Telemetry Diaphragmatic hernia: -POD #0 s/p laparoscopic Jacinto fundoplication by Dr. Hardy -Thoracic surgery consulted for further post-surgical mgmt HTN: -BP elevated post-operatively -Given 5 mg IV labetalol, 1 inch of nitro paste -Per cardio, continue ntg 1 inch paste Q6, IV metoprolol 5mg Q6 -Cont Losartan, Imdur, Toprol -Monitor CAD (s/p stents): -Cont baby aspirin, imdur, statin HLD: -Cont statin GERD: -Cont PPI, H2 isauro DVT Ppx: SQ lovenox Code status: FULL PCP: Liana Dispo: Observation telemetry. Plan to return home once medically stable. Patient seen in collaboration with Dr. Bhardwaj. Please see addendum. ATTENDING ADDENDUM This is a 77-year-old female who underwent diaphragmatic hernia repair Developed chest pain/chest heaviness postoperatively, found to have uncontrolled high blood pressure Patient was evaluated by cardiology Bedside echo shows no evidence of wall motion abnormality and normal ejection fraction No evidence of acute coronary event Last vitals shows BP 187/104 patient remains asymptomatic Has Nitropaste Ordered for Imdur 30 mg to be given now She will be monitored in telemetry to monitor blood pressure Ivanna Bhardwaj MD Resuscitation Status VTE Prophylaxis Will order VTE Prophylaxis: Yes
[2017-09-20] MEDS: D5W AND 1/2NSS 1,000 ML IV SCH (15:42)
[2017-09-20 16:00] LABS: HEMOGLOBIN 12.4 g/dL (12.0-16.0); IG# 0.03 K/uL (0.00-0.02); LYMPH % 2.2 %; LYMPH ABS # 0.28 K/uL (1.2-3.4); MEAN CELL VOLUME 88.5 fL (80-100); MEAN CORPUSCULAR HEMOGLOBIN 30.5 pg (25-34); MEAN PLATELET VOLUME 9.4 fL (7.4-10.4); MONO % 6.3 %; MONO ABS # 0.79 K/uL (0.11-0.59); NEUT % 91.3 %; NEUT ABS # 11.54 K/uL (1.4-6.5); PLATELET COUNT 239 K/uL (130-400); RED CELL DISTRIBUTION WIDTH CV 13.8 % (11.5-14.5); RED CELL DISTRIBUTION WIDTH SD 44.8 fL (36.4-46.3); WHITE BLOOD COUNT 12.64 K/uL (4.8-10.8)
[2017-09-20] MEDS: METOCLOPRAMIDE HCL INJ 5 MG/ML 2 ML VIAL IV. SCH ×2 (16:00→22:29)
[2017-09-20 16:12] LABS: MEAN CORPUSCULAR HGB CONC 34.4 g/dl (32-36)
[2017-09-20 16:26] LABS: BLOOD UREA NITROGEN 15 mg/dl (7-18); CALCIUM 8.2 mg/dl (8.5-10.1); CARBON DIOXIDE 24 mmol/L (21-32); CREATININE 0.47 mg/dl (0.60-1.20); GLUCOSE 153 mg/dl (70-99); POTASSIUM 3.5 mmol/L (3.5-5.1); SODIUM 135 mmol/L (136-145)
[2017-09-20] MEDS ORDERED: IV FLUIDS COMPLETED PRN ×2 (16:30→19:15)
[2017-09-20] MEDS: ONDANSETRON INJ 2 MG/ML 2 ML VIAL IV. SCH ×2 (18:21→22:27)
[2017-09-20] MEDS: METOPROLOL TARTRATE 1 MG/ML VIAL IV. SCH (18:23)
--- NOTE | 2017-09-20 19:43 | CARDIOLOGY PROGRESS NOTE ---
DATE: 09/20/2017 The patient was seen and examined after admission to the telemetry unit. Please refer to full consultation earlier. She continues to have intermittent neck, back, abdominal and chest discomfort though improving. Blood pressures have trended towards better control. She is nauseated taking only small amount of liquids, uncertain as to whether she could take pills this evening. OBJECTIVE: VITAL SIGNS: Heart rate 78, blood pressure is 158/89. NECK: Thin. There is no jugular venous distention. LUNGS: Reveal mildly diminished breath sounds, but are clear. CARDIOVASCULAR: Regular. There is no S3 gallop. LABORATORY STUDIES: Sodium is 135, potassium 3.5, chloride 105, bicarbonate is 24, creatinine 0.47. Troponin less than 0.015. Hemoglobin is 12.4. IMPRESSION: A 77-year-old female with postoperative pain following fundoplication via robotic approach. No signs or symptoms of cardiac etiology. Echo, EKGs and cardiac enzymes negative. The patient is uncertain as to whether she can resume oral medications. Will continue order for IV metoprolol and topical nitrates until medications assured. Will follow along.
[2017-09-20] MEDS: NITROGLYCERIN 2% OINTMENT 30GM TUBE EXT SCH (20:07)
[2017-09-20] MEDS ORDERED: ISOSORBIDE MONONITRATE 30 MG TABCR PO ONE (20:30)
[2017-09-20] MEDS ORDERED: RANITIDINE HCL 150 MG TAB PO SCH (21:00)
[2017-09-20] MEDS ORDERED: CHOLECALCIFEROL 1000 INTER.UNIT TAB PO SCH (21:00)
[2017-09-20] MEDS ORDERED: ATORVASTATIN 10 MG TAB PO SCH (21:00)
[2017-09-20] MEDS ORDERED: LOSARTAN POTASSIUM 50 MG TAB PO SCH (21:00)
[2017-09-20] MEDS: DOCUSATE SODIUM 100 MG CAP PO SCH (21:09)
[2017-09-20] MEDS: ACETAMINOPHEN IV 1,000 MG in EMPTY BAG 0 ML IV SCH (22:26)
--- NOTE | 2017-09-20 23:11 | OPERATIVE REPORT ---
DATE OF OPERATION: 09/20/2017 PREOPERATIVE DIAGNOSES: 1. Hiatal hernia with gastroesophageal reflux disease recalcitrant to medical management. 2. Esophageal dysmotility. PROCEDURES: 1. Robot-assisted laparoscopic repair of hiatal hernia with patch augmentation with a bioprosthetic patch. 2. Toupet partial fundoplication. 3. Post-procedure upper endoscopy. SURGEON: Dre Hardy MD TAX SERVICES PROFESSIONAL: GEORGES Silva (Mr. Bowles was present for the entire case and was at the patient's bedside while I was at the console. He was instrumental in assisting and also closed the skin incisions at the conclusion). ANESTHESIA: General anesthesia endotracheal intubation. INDICATION FOR PROCEDURE AND FINDINGS: Ana Choudhury is a 77-year-old female who has a recalcitrant gastroesophageal reflux disease. She was evaluated and found to have problems with her vocal cords from probable aspiration. These appeared to be inflamed. I discussed this in detail with the patient and after assessing her with a barium swallow and reviewing her upper endoscopy results, it appeared she would be a candidate for a partial fundoplication. On 09/20/2017, the patient was brought to the operating room and underwent an uncomplicated robot-assisted laparoscopic partial fundoplication. I did not do a full 360-degree wrap because of her dysmotility. She had a surprisingly large hiatal hernia. I removed the sac. I then repaired her hiatal hernia and then placed a bioprosthetic patch across the repair and sutured in to place. I then did about a 260-degree wrap with the stomach posteriorly. She tolerated it well. DESCRIPTION OF PROCEDURE: The patient was brought to the operating room and laid in supine position. General anesthesia was induced and endotracheal intubation was performed. After prepping and draping in sterile fashion and after calling appropriate timeout and giving appropriate antibiotics prophylactically, an incision was made 2 cm above the umbilicus. I then carried this down to the fascia and placed a Veress needle and insufflated CO2. We had a good pneumoperitoneum. I placed a 12 mm port and placed a camera and we could see there were no adhesions. I then placed a 5 mm port laterally on both sides. I then placed an 8 mm port in the midclavicular line just below the costal margin on the left and a little further inferiorly on the right. We then placed the camera and docked the robot. I was surprised to see the size of the hernia because it really did not appear very large; however, I went ahead and immediately used a vessel sealer from the [employer] robot and took down the short gastrics all the way up to the left marian. This freed up from the splenic attachments quite nicely. I then came posteriorly and then started taking down the sac from the left side. The sac came down quite nicely and I brought this both posteriorly and anteriorly. I dissected out the esophagus several centimeters into the mediastinum. I went around the esophagus, put a 3/4 inch Mario and retracted the esophagus to the left and then took down the attachments posteriorly and along the left marian. I then finished taking the sac down completely and handed it off the field. I also took down the gastroesophageal fat pad. I identified the vagus nerves nicely. The hiatal opening was rather large. I took a single 0 silk suture and did a generous bite to pull it together posteriorly in a single interrupted fashion. I then placed 2 more sutures, but I did not make it exceedingly tight. I then measured out about a 5 x 4 cm patch and sutured it around the site surrounding the esophagus from anterior all the way to posterior. This was sutured in place with 2-0 Vicryl sutures. This laid very nicely. I then marked a spot anteriorly and posteriorly on the fundus wall on either side of the greater curvature and pulled the posterior side around in a retroesophageal manner. This laid without tension. I then used 2-0 silk sutures and sutured the esophagus to the fundus to the crura anterior laterally on the right and this actually incorporated part of the bioprosthetic patch. It was not touching the esophagus. I made 4 sutures coming down on the left and then 4 sutures on the right for the anterior fundus in a likewise fashion. This laid very nicely. We really got into no bleeding. I was quite happy with our exposure. It should be noted I did use Pretzel 5 mm retractor through the right 5 mm port laterally to hold the left lobe of the liver out of the way and we had excellent exposure. We then undocked the robot, but left the liver retractor in place and then flattened the table. It should be noted we placed the patient in reverse Trendelenburg for the gravity to pull the visceral contents inferiorly. This improved visualization. We flattened the table. I then did an upper endoscopy. Esophagus looked quite good. I was quite happy with the appearance of the repair. It appeared quite good upon retroflexion. In addition, we insufflated air after instilling saline through the ports and saw no evidence of any leaking. I then removed the upper endoscope after sucking out fluid and air from the stomach. After removing this, we then turned off the CO2 insufflation, which we had used throughout the case and deflated the stomach. Prior to doing this, however, we had two 12-mm ports which had to be closed. We used an Endo Close and used 0 Maxon to close the assistance port which was in the left periumbilical area and the camera port which was in the midline. We closed both these with simple sutures. The skin incisions were then closed with 4-0 Monocryl in a running subcuticular fashion. Patient tolerated the procedure well. She was complaining of some midsternal chest pain. We were a bit concerned about this because she really was not complaining of abdominal pain. An x-ray was obtained which showed some subcutaneous emphysema which I would have expected from our CO2 insufflation. She was seen by cardiology. An echocardiogram really showed no abnormalities. Her EKG looked good and Dr. Vazquez Dey evaluated the patient and did not feel this was a cardiac issue. She had settled down a great deal when she was moved up to telemetry. I attest to the content of the Intraoperative Record and any orders documented therein. Any exception s are noted below.
[2017-09-21] MEDS: NITROGLYCERIN 2% OINTMENT 30GM TUBE EXT SCH ×2 (00:27→05:59)
[2017-09-21] MEDS: METOPROLOL TARTRATE 1 MG/ML VIAL IV. SCH ×2 (00:27→05:59)
[2017-09-21] MEDS: D5W AND 1/2NSS 1,000 ML IV SCH (01:45)
[2017-09-21] MEDS: ONDANSETRON INJ 2 MG/ML 2 ML VIAL IV. SCH ×3 (01:46→11:22)
[2017-09-21 03:25] VITALS: BP 147/82; PULSE 79; TEMP 36.3; O2SAT 94
[2017-09-21 04:06] LABS: HEMATOCRIT 31.5 % (37-47); HEMOGLOBIN 10.9 g/dL (12.0-16.0); MEAN CELL VOLUME 87.7 fL (80-100); MEAN CORPUSCULAR HEMOGLOBIN 30.4 pg (25-34); MEAN CORPUSCULAR HGB CONC 34.6 g/dl (32-36); MEAN PLATELET VOLUME 9.4 fL (7.4-10.4); PLATELET COUNT 206 K/uL (130-400); RED CELL DISTRIBUTION WIDTH CV 13.7 % (11.5-14.5); RED CELL DISTRIBUTION WIDTH SD 44.4 fL (36.4-46.3); WHITE BLOOD COUNT 10.96 K/uL (4.8-10.8)
[2017-09-21 04:28] LABS: BLOOD UREA NITROGEN 14 mg/dl (7-18); CARBON DIOXIDE 25 mmol/L (21-32); GLUCOSE 150 mg/dl (70-99); POTASSIUM 3.4 mmol/L (3.5-5.1); SODIUM 129 mmol/L (136-145)
[2017-09-21] MEDS: ACETAMINOPHEN IV 1,000 MG in EMPTY BAG 0 ML IV SCH (05:58)
[2017-09-21] MEDS: METOCLOPRAMIDE HCL INJ 5 MG/ML 2 ML VIAL IV. SCH (05:58)
--- NOTE | 2017-09-21 08:00 | Discharge Instructions ---
Discharge Instructions Date of Service September 21, 2017. Admission Reason for Admission: Hiatal Hernia Discharge Discharge Diagnosis / Problem: Hiatal Hernia Discharge Goals Goal(s): Decrease discomfort Activity Recommendations Activity Limitations: as noted below Lifting Limitations: none, no more than 10 pounds 1. Continue a liquid diet and do not advance to solid foods until cleared to do so by Dr. Hardy. 2. Do not drive until cleared to do so by Dr. Hardy. 3. Do not lift objects heavier than 10 pounds until cleared to do so by Dr. Hardy. . Instructions / Follow-Up Instructions / Follow-Up 1. You may remove dressing in 3 days and shower thereafter. No tub baths. 2. Office appointment with Dr. Hardy in 1 week. Office will call you with date and time of appointment. Current Hospital Diet Patient's current hospital diet: Clear Liquid Diet Discharge Diet Recommended Diet: Full Liquid Diet Procedures Procedures Performed: Robotic assisted Laparoscopic repair of hiatal Hernia with Reinforced using O[employer] Patch Toupet partial fundoplication Esophagogastroduodenoscopy Pending Studies Studies pending at discharge: no Medical Emergencies . Who to Call and When: Medical Emergencies: If at any time you feel your situation is an emergency, please call 911 immediately. . Non-Emergent Contact Non-Emergency issues call your: Surgeon Call Non-Emergent contact if: you have a fever, your pain is not controlled, wound has increased drainage . "Provider Documentation" section prepared by Amanuel Bowles. .
[2017-09-21 08:07] VITALS: BP 114/66; PULSE 76; TEMP 36.3; O2SAT 95
--- NOTE | 2017-09-21 08:29 | DIAGNOSTIC IMAGING REPORT ---
(BARIUM SWALLOW) ESOPHAGUS CLINICAL HISTORY: nissenfundoplication COMPARISON STUDY: 09/11/2017 FLUOROSCOPY TIME: 1 minute. FINDINGS: Patient initiates swallowing function well. There is mild esophageal dysmotility. Findings of an interval Jacinto fundoplication are present. There is good flow of contrast to the stomach. There is evidence for flow of contrast to the small bowel with no significant retained gastric content. IMPRESSION: 1. Normal study post Jacinto fundoplication. 2. No evidence for gastric outlet obstruction. 3. Mild esophageal dysmotility The above report was generated using voice recognition software. It may contain grammatical, syntax or spelling errors. Electronically signed by: Yusuf Guzman M.D. 09/21/2017 8:28 AM Dictated Date/Time: 09/21/2017 8:26 AM
[2017-09-21] MEDS: DOCUSATE SODIUM 100 MG CAP PO SCH (08:52)
[2017-09-21] MEDS ORDERED: ENOXAPARIN 40 MG/0.4 ML SYR SQ SCH (09:00)
[2017-09-21] MEDS ORDERED: ISOSORBIDE MONONITRATE 30 MG TABCR PO SCH (09:00)
[2017-09-21] MEDS ORDERED: OXYBUTYNIN CHLORIDE 5 MG TABCR PO SCH (09:00)
[2017-09-21] MEDS ORDERED: PANTOprazole SOD 40 MG TAB PO SCH (09:00)
[2017-09-21] MEDS ORDERED: METOPROLOL SUCC 25MG EXT REL TAB PO SCH (09:00)
--- NOTE | 2017-09-21 09:24 | SURGERY PROGRESS NOTE ---
DATE: 09/21/2017 Mrs. Choudhury was seen today down in radiology. She really had an uneventful night. She has multiple complaints but has always had complaints that she readily admitted this morning. She got her barium swallow today and I evaluated her and I thought she looked quite good. The swallow was beautiful. I saw no abnormalities whatsoever and the wrap looked good. She denies reflux symptoms. We are going to give her clear liquid today. Discontinue all of her IVs and have her ambulate in the hallway. We are happy with the way things look. I will let her go later today.
[2017-09-21] MEDS ORDERED: POTASSIUM CHLORIDE 10 MEQ TABCR PO ONE (10:15)
[2017-09-21] MEDS ORDERED: NSS + 20MEQ KCL 1000ML 1,000 ML IV SCH (10:30)
[2017-09-21] MEDS ORDERED: ACETAMINOPHEN 325 MG TAB PO SCH (12:00)
[2017-09-21 12:02] VITALS: BP 109/64; PULSE 80; TEMP 36.5; O2SAT 94
--- NOTE | 2017-09-21 13:55 | DISCHARGE SUMMARY ---
DISCHARGE DIAGNOSIS: Hiatal hernia with gastroesophageal reflux refractory to medical management. HOSPITAL COURSE: Ana Choudhury is a 77-year-old female who has multiple issues but has marked reflux. She is unresponsive to maximum medical therapy. We had a long talk in the office and elected to proceed with a partial wrap as she did have some esophageal dysmotility also. On September 20, 2017, took the patient to the operating room, did an uncomplicated robotic Toupet partial fundoplication. We also repaired her hiatal hernia, which was rather large actually and then reinforced this with a biologic mesh. She complained of intense substernal chest pain in the recovery room. She did have some carbon dioxide in her mediastinal area, which was not surprising given that we had insufflated it. At any rate, she underwent a workup including echocardiogram and evaluation by Dr. Vazquez Dey. It was felt that none of this pain was cardiac in nature. We watched her in telemetry, and she was very stable. On the following morning, a barium swallow was done, which looked quite good. Her wrap was intact with no extravasation. She was started on clear liquids. She was still complaining of some vague substernal pain but has resolved a great deal. Her incisions are clean. She has good bowel sounds. Her lungs are clear, and her x-ray looked quite good. Discharged her home on postop day 1. I will see her back in the office next week. She is to call should any problems arise.
[2017-09-21 14:44] VITALS: BP 109/64; PULSE 80; TEMP 36.5; O2SAT 94
[2017-09-21 15:27] VITALS: BP 166/94; PULSE 77; TEMP 36.6; O2SAT 94
[2017-09-21] MEDS ORDERED: ONDANSETRON 4 MG TAB PO ONE (15:45)
--- NOTE | 2017-09-21 20:53 | Progress Note ---
Medicine Progress Note Date & Time of Visit: September 21, 2017 at 20:43. Subjective seen resting in bed, comfortable has mild epigastric discomfort no chest pain, dyspnea, dizziness no other symptoms Objective Last 8 Hrs Date Time Temp Pulse Resp B/P (MAP) Pulse Ox O2 Delivery O2 Flow Rate FiO2 09/21/17 14:44 36.5 80 18 94 Nasal Cannula Physical Exam: General- oriented x 3, not in distress, speaks in sentences with no effort Head- atraumatic Eyes- anicteric ENT- oropharynx clear Neck- supple, no JVD, no adenopathy Lungs- clear to auscultation BL Heart- regular rhythm; no murmur, normal rate Abdomen- normal bowel sounds, soft, nontender, no masses Extremities- no pretibial edema, no calf tenderness; peripheral pulses intact Neuro- alert, oriented x 3;no gross focal deficits Skin- warm & dry Laboratory Results: Last 24 Hours Test 09/20/17 21:36 09/21/17 03:51 09/21/17 10:29 Troponin I < 0.015 ng/ml < 0.015 ng/ml White Blood Count 10.96 K/uL Red Blood Count 3.59 M/uL Hemoglobin 10.9 g/dL Hematocrit 31.5 % Mean Corpuscular Volume 87.7 fL Mean Corpuscular Hemoglobin 30.4 pg Mean Corpuscular Hemoglobin Concent 34.6 g/dl RDW Standard Deviation 44.4 fL RDW Coefficient of Variation 13.7 % Platelet Count 206 K/uL Mean Platelet Volume 9.4 fL Sodium Level 129 mmol/L 130 mmol/L Potassium Level 3.4 mmol/L Chloride Level 99 mmol/L Carbon Dioxide Level 25 mmol/L Anion Gap 5.0 mmol/L Blood Urea Nitrogen 14 mg/dl Creatinine 0.50 mg/dl Est Creatinine Clear Calc Drug Dose 95.0 ml/min Estimated GFR () 106.7 Estimated GFR (Non- 92.1 BUN/Creatinine Ratio 27.1 Random Glucose 150 mg/dl Calcium Level 8.0 mg/dl Albumin 3.0 gm/dl Assessment & Plan This is a 77yo F with a PMH of CAD (s/p stents), HTN, HLD, diaphragmatic hernia and other medical problems listed below who is POD #0 s/p laparoscopic Jacinto fundoplication and developed post-operative chest pain. Chest pain, resolved likely from HTN cardiac markers negative echo no signs of ischemia Diaphragmatic hernia: -POD #1 s/p laparoscopic Jacinto fundoplication by Dr. Hardy HTN: -BP elevated post-operatively - improved - resume usual medications HYPONATREMIA, MILD likely from Dehydration NSS ordered Na improved to 130s advised to increase oral fluid intake HYPOKALEMIA repleted CAD (s/p stents): -Cont baby aspirin, imdur, statin HLD: -Cont statin GERD: -Cont PPI, H2 isauro
[2017-09-22] MEDS ORDERED: METOPROLOL SUCC 25MG EXT REL TAB PO SCH (09:00)
== END 2017-09-21 15:36 | disposition home or self-care (01) ==
LOC: C.ACU 05:53 → C.2T 11:20 → ENRESERV 11:47 → CANBEDREQ 13:26 → ENRESERV 14:46 → CANBEDREQ 15:32
PROVIDERS: ADMIT Surgery; ATTEND Surgery
DX: K44.9 Diaphragmatic hernia without obstruction or gangrene (principal); K21.9 Gastro-esophageal reflux disease without esophagitis; K22.8 Other specified diseases of esophagus; I25.10 Atherosclerotic heart disease of native coronary artery without angina pectoris; I10 Essential (primary) hypertension; E78.5 Hyperlipidemia, unspecified; M19.90 Unspecified osteoarthritis, unspecified site; Z85.828 Personal history of other malignant neoplasm of skin; Z88.0 Allergy status to penicillin; Z88.2 Allergy status to sulfonamides; Z88.5 Allergy status to narcotic agent; Z88.6 Allergy status to analgesic agent; Z88.7 Allergy status to serum and vaccine; Z79.899 Other long term (current) drug therapy; Z80.9 Family history of malignant neoplasm, unspecified; Z82.49 Family history of ischemic heart disease and other diseases of the circulatory system
CPT/HCPCS: 43281; S2900

== ENCOUNTER 2020-12-02 12:50 | Inpatient (IN) ==
--- NOTE | 2020-11-11 11:47 | PAT Medication Instructions ---
Medication Instructions Date of Service November 11, 2020 Home Medications atorvastatin 10 mg PO HS cholecalciferol (vitamin D3) [Vitamin D3] 5,000 unit PO HS isosorbide mononitrate 30 mg PO HS losartan 50 mg PO HS metoprolol succinate 25 mg PO HS acetaminophen [Tylenol Extra Strength] 1,000 mg PO UD PRN solifenacin 10 mg PO QAM DO NOT take the morning of surgery solifenacin 10 mg PO QAM Take morning of surgery With a small sip of water, OTHERWISE NOTHING TO EAT OR DRINK AFTER MIDNIGHT: acetaminophen [Tylenol Extra Strength] 1,000 mg PO UD PRN (okay to take up to 4 hours prior to surgery if needed) Take evening before surgery atorvastatin 10 mg PO HS cholecalciferol (vitamin D3) [Vitamin D3] 5,000 unit PO HS isosorbide mononitrate 30 mg PO HS losartan 50 mg PO HS metoprolol succinate 25 mg PO HS acetaminophen [Tylenol Extra Strength] 1,000 mg PO UD PRN (if needed) Other Notes If you have any questions please call us at [phone] or [phone] or [phone] or [phone]
--- NOTE | 2020-11-13 15:33 | Anesthesiology Consultation ---
Date of Service November 13, 2020 Assessment & Plan (1) Encounter for pre-operative examination: COVID Status: As of 11/13 assessment, patient denies travel to endemic area, known exposure/sick contacts, or symptoms of COVID19. Patient advised to adhere to social distancing guidelines, wear a mask in public and avoid large crowds or unnecessary travel in the 2 weeks leading up to surgery. Preoperative COVID19 testing to be completed prior to surgery per surgeon's arrangements. Pat ient encouraged to be extra cautious/conscientious with COVID precautions between COVID testing and surgery. Pt markedly hypertensive at PAT appointment. Was seen by cardio 09/2020. "At the time for recent orthopedic follow-up visit her blood pressure was 158/100. Today in our office is 130/90. She is frail, and as noted, I would have significant concerns with regards to the risks of orthostatic hypotension and I think it is most prudent for us to continue her current regimen without change and to accept some degree of hypertension. I counseled her that think it is r easonable to proceed with the proposed surgical intervention for her left hand in an effort to help maintain her independence. Although she certainly has risk factors for cardiac complication, I would estimate that her risk of perioperative complication is low, and that the benefit of surgery outweighs the relatively low risks. She is a suitable candidate for the ambulatory surgery center and would recommend proceeding without further cardiac testing." Chart Review Chart Review: Acceptable Risk for Surgery (pending pre op testing) and Patient seen in Pre Admission Testing Teaching & Discussion Instructed NPO after midnight before surgery, except medications with 15 cc of water. Medication instructions provided according to the PAT guidelines. History Surgery Operation Date: 12/02/20 11:35 Proposed Procedures p Left Thumb; Carpal Metacarpal Arthroplasty - Luis Dhillon MD Height/Weight Height: 5 ft 6 in Weight: 68.039 kg Allergies Allergy/AdvReac Type Severity Reaction Status Date / Time codeine Allergy Severe HIVES/DIFFICULTY Verified 10/27/20 11:46 BREATHING Sulfa (Sulfonamide Allergy Intermediate GI UPSET Verified 10/27/20 11:46 Antibiotics) AND VIOLENT VOMITING tetanus toxoid, adsorbed Allergy Intermediate SEVERE Verified 10/27/20 11:46 HIVES AND THROAT CLOSING hydrocodone Allergy Mild Gastrointestinal Verified 10/27/20 11:51 Upset morphine Allergy Mild Gastrointestinal Verified 10/27/20 11:51 Upset tramadol Allergy Mild Gastrointestinal Verified 10/27/20 11:51 Upset aspirin Allergy Unknown "EYE Verified 10/27/20 11:46 HEMORRHAGES" atropine Allergy Unknown HEART RACES Verified 10/27/20 11:46 diazepam Allergy Unknown "PASSED Verified 10/27/20 11:46 OUT COLD",RASH ibuprofen Allergy Unknown "TOLD NOT Verified 10/27/20 11:46 TO TAKE BECAUSE OF HEART" lidocaine Allergy Unknown UNABLE TO Verified 10/27/20 11:46 BREATHE Penicillins Allergy Unknown HIVES Verified 10/27/20 11:46 pentazocine Allergy Unknown GI UPSET Verified 10/27/20 11:46 propoxyphene Allergy Unknown "KNOCKED Verified 10/27/20 11:46 ME RIGHT OUT" Medications Home Medications Medication Instructions Recorded Confirmed Last Taken atorvastatin 10 mg PO HS 02/02/18 10/27/20 07/25/19 00:00 cholecalciferol (vitamin D3) 5,000 unit PO 02/02/18 10/27/20 07/25/19 00:00 [Vitamin D3] isosorbide mononitrate 30 mg PO 02/02/18 10/27/20 07/25/19 00:00 losartan 50 mg PO 02/02/18 10/27/20 07/25/19 00:00 metoprolol succinate 25 mg PO 02/02/18 10/27/20 07/25/19 00:00 acetaminophen [Tylenol Extra 1,000 mg PO UD PRN 12/12/18 10/27/20 07/25/19 00:00 Strength] solifenacin 10 mg PO QAM 10/27/20 10/27/20 Unknown Past Medical History Medical History CAD (coronary artery disease) "s/p LAD stent 2002" Dysphagia Esophageal dilatation 10 YRS AGO Esophageal hernia HX 2018 Falls frequently STATES SHE CAN BE STANDING AND JUST FALLS OVER. Has been evaluated by [facility] neurology (03/11/20). MRI of the brain report negative for normal pressure hydrocephalus or acute changes. Gait dysfunctional multifactorial -- neuropathy, spinal stenosis, arthritis. GERD (gastroesophageal reflux disease) History of basal cell carcinoma History of squamous cell carcinoma History of subdural hemorrhage YEARS AGO PER PATIENT/ NO CURRENT ISSUES HLD (hyperlipidemia) HTN (hypertension) Neuropathy Osteoarthritis Spinal stenosis Exercise / Class Metabolic Activity III < 4 Walking/Shop/Light housework (No CP or SOB with ambulation, very frail, slow, using 2 canes due to frequent falls.) Past Family History Family History Mother Cancer Other No significant family history Past Surgical History Surgical History (Updated 10/27/20 @ 12:02 by Herlinda Piedra RN) H/O bilateral hip replacements H/O eye surgery left eye lense fragment removal H/O heart artery stent DONE AT [facility]/ WAS HAVING CHEST PAIN/ ACS MULTI LINK CORONARY STENT FAMILY LAD/ MAR 21, 2003 - NO ISSUES SINCE H/O hernia repair History of adenoidectomy History of bunionectomy of left great toe History of colonoscopy History of dilatation and curettage X3 History of esophagogastroduodenoscopy (EGD) History of hysterectomy History of left cataract surgery History of open reduction and internal fixation (ORIF) procedure X2 LEFT ARM History of tonsillectomy Hx of arthroscopy of left knee Hx of arthroscopy of right knee Hx of hand surgery LEFT Hx of right cataract extraction Hx of varicose vein ligation and stripping BOTH LEGS Personal history of spine surgery done at [facility] 2014 CERVIAL 2 RODS, 12 SCREWS/ HAS FULL MOBILITY OF NECK S/P gastric surgery "Dr Hardy sewed a tear in my stomach that was letting acid seep right into my esophagus" Past Anesthesia History No Family Hx of Anesthesia Complications History of PONV History of PONV and Hx of Motion Sickness (when not driving) Social History Smoking Status: Never smoker Do You Dip or Chew Tobacco: No Hx Alcohol Use: Yes Alcohol type: hard liquor alcohol intake frequency: holidays/special occasions only Hx Substance Use: No substance use type: does not use Review of Systems Pt denies any recent chest pain, shortness of breath, palpitations, cough, fever, URI, or uncontrolled acid reflux. +runny nose from allergies Physical Exam Vital Signs BP: 177/108 (rpt RUE 160/105 manual. 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 Left atrial margin. Compared with EKG of 12/12/2018, NV interval has increased. T wave inversion no longer evident in inferior leads, nonspecific T wave abnormality no longer evident in anterior leads. Echocardiogram Date: 09/20/17 EF: 60-65% The left ventricle is normal in size. Mild concentric LVH. LV systolic function is normal. LV wall motion is normal. Aortic valve sclerosis moderate, without significant aortic valvular stenosis. The aortic root is normal size. There is no pericardial effusion.
--- NOTE | 2020-11-29 21:39 | History & Physical Report ---
Date of Service November 29, 2020 Assessment & Plan (1) Arthritis of carpometacarpal (CMC) joint of left thumb: Treatment options discussed with patient. She has failed conservative measures and would like to proceed surgical intervention. Risks, benefits and alternatives to surgery including but not limited to infection, DVT, pain, stiffness, need for revision surgery, damage to blood vessels, damage to nerves, PE, , were discussed with the patient and they wish to proceed. Plan on left 1st CMC joint arthroplasty scheduled for 12/02/20 at [facility]. All questions answered. She will follow up post operatively. History of Present Illness Chief Complaint: Left basal thumb pain Primary Care Provider: Sophia Gaines DO 80 year old female with PMHx significant for HTN, neuropathy, skin Ca, LLE DVT, CAD with stent placement presents with longstanding left thumb pain. She has severe arthritis 1st CMC joint. She has failed conservative measures including cortisone injections and bracing. Pain interfering with her daily activities. She would like to proceed with surgical intervention. Patient denies headaches, sweats, fevers, chills, double vision, blurred vision, cough, sore throat, dysphagia, chest pain, sob, wheezing, n/v/d/c, numbness, tingling, fatigue, urinary symptoms, mood disorders. ROS positive for left thumb pain and stiff ness. Allergies Allergy/AdvReac Type Severity Reaction Status Date / Time codeine Allergy Severe HIVES/DIFFICULTY Verified 10/27/20 11:46 BREATHING Sulfa (Sulfonamide Allergy Intermediate GI UPSET Verified 10/27/20 11:46 Antibiotics) AND VIOLENT VOMITING tetanus toxoid, adsorbed Allergy Intermediate SEVERE Verified 10/27/20 11:46 HIVES AND THROAT CLOSING hydrocodone Allergy Mild Gastrointestinal Verified 10/27/20 11:51 Upset morphine Allergy Mild Gastrointestinal Verified 10/27/20 11:51 Upset tramadol Allergy Mild Gastrointestinal Verified 10/27/20 11:51 Upset aspirin Allergy Unknown "EYE Verified 10/27/20 11:46 HEMORRHAGES" atropine Allergy Unknown HEART RACES Verified 10/27/20 11:46 diazepam Allergy Unknown "PASSED Verified 10/27/20 11:46 OUT COLD",RASH ibuprofen Allergy Unknown "TOLD NOT Verified 10/27/20 11:46 TO TAKE BECAUSE OF HEART" lidocaine Allergy Unknown UNABLE TO Verified 10/27/20 11:46 BREATHE Penicillins Allergy Unknown HIVES Verified 10/27/20 11:46 pentazocine Allergy Unknown GI UPSET Verified 10/27/20 11:46 propoxyphene Allergy Unknown "KNOCKED Verified 10/27/20 11:46 ME RIGHT OUT" Home Medications Medication Instructions Recorded Confirmed Type atorvastatin 10 mg PO HS 02/02/18 10/27/20 History cholecalciferol (vitamin D3) 5,000 unit PO HS 02/02/18 10/27/20 History [Vitamin D3] isosorbide mononitrate 30 mg PO HS 02/02/18 10/27/20 History losartan 50 mg PO HS 02/02/18 10/27/20 History metoprolol succinate 25 mg PO HS 02/02/18 10/27/20 History acetaminophen [Tylenol Extra 1,000 mg PO UD PRN 12/12/18 10/27/20 History Strength] solifenacin 10 mg PO QAM 10/27/20 10/27/20 History Past Med/Surg History Medical History CAD (coronary artery disease) "s/p LAD stent 2002" Dysphagia Esophageal dilatation 10 YRS AGO Esophageal hernia HX 2018 Falls frequently STATES SHE CAN BE STANDING AND JUST FALLS OVER. [place] been [place] [facility] [place]11/20[place] MRI of the brain report negative for normal pressure hydrocephalus or acute changes. Gait dysfunctional multifactorial -- neuropathy, spinal stenosis, arthritis. GERD (gastroesophageal reflux disease) History of basal cell carcinoma History of squamous cell carcinoma History of subdural hemorrhage YEARS AGO PER PATIENT/ NO CURRENT ISSUES HLD (hyperlipidemia) HTN (hypertension) Neuropathy Osteoarthritis Spinal stenosis Surgical History (Updated 10/27/20 @ 12:02 by Herlinda Piedra RN) H/O bilateral hip replacements H/O eye surgery left eye lense fragment removal H/O heart artery stent DONE AT [facility]/ WAS HAVING CHEST PAIN/ ACS MULTI LINK CORONARY STENT FAMILY LAD/ MAR 21, 2003 - NO ISSUES SINCE H/O hernia repair History of adenoidectomy History of bunionectomy of left great toe History of colonoscopy History of dilatation and curettage X3 History of esophagogastroduodenoscopy (EGD) History of hysterectomy History of left cataract surgery History of open reduction and internal fixation (ORIF) procedure X2 LEFT ARM History of tonsillectomy Hx of arthroscopy of left knee Hx of arthroscopy of right knee Hx of hand surgery LEFT Hx of right cataract extraction Hx of varicose vein ligation and stripping BOTH LEGS Personal history of spine surgery done at [facility] 2015 CERVIAL 2 RODS, 12 SCREWS/ HAS FULL MOBILITY OF NECK S/P gastric surgery "Dr Hardy sewed a tear in my stomach that was letting acid seep right into my esophagus" Family History Mother Cancer Other No significant family history Social History Smoking Status: Never smoker Second Hand Exposure: No; Hx Alcohol Use: Yes Alcohol type: hard liquor Hx Substance Use: No Preferred Language: Togolese Communication Ability: Effective Networking Specialist Required: No Beliefs That Will Affect Care: None Current Living Situation: Alone Feels Safe at Home: Yes Assistive Devices: Cane, Glasses and Walker Review of Systems All systems reviewed & are unremarkable except as noted in HPI & below Physical Exam Constitutional: well developed and well nourished; no acute distress Eyes: PERRL, conjunctivae normal, anicteric sclerae ENMT: external ear and nose normal, oropharynx normal Neck: trachea midline, no thyromegaly Respiratory: normal respiratory effort, lungs clear to auscultation Cardiovascular: RRR, no murmur, no edema Musculoskeletal: Left thumb: Active painful ROM with crepitation. Tenderness 1st CMC joint. Swelling over CMC joint with bony deformity noted at CMC joint. Positive basal joint grind test. Grasp and holding weakness Skin: no rashes, warm and dry Neurologic: patellar DTR's 2+ bilat, sensation intact Psychiatric: A+Ox3, euthymic affect Results & Data ([facility]) Diagnostic Findings Left hand x-ray demonstrates advanced CMC joint osteoarthritis of the thumb with advanced trapezius scaphoid osteoarthritis as well. There were large osteophytes around the trapezium. She also has joint space narrowing of the second metacarpophalangeal joint. She has some generalized osteopenia of the bones. The wrist joint itself has minor osteoarthritis between the scaphoid and the radius but maintained joint space. X-rays left hand, three views.
[~2020-12-02 12:50] MED LIST changes: -ACET-1256 PO; -CHOL1TAB42 PO; -CZR50 PO; -ISOS30TA3 PO; -LPT10 PO; +LR 15ML/HR IV SCH; -METO25TA3 PO; -PANT40TA PO; -RANI150T85 PO; +VANCOMYCIN HCL 1,000 MG/270 ML BAG IV SCH
[2020-12-02] MEDS ORDERED: PROPOFOL IV EMULSION 10 MG/ML 20 ML VIAL IV ONE (13:18)
[2020-12-02] MEDS ORDERED: fentaNYL citrate 100 MCG/2 ML VIAL ONE ×2 (13:19→14:37)
[2020-12-02] MEDS ORDERED: MIDAZOLAM HCL 1 MG/ML 2ML VIAL ONE (13:19)
[2020-12-02] MEDS ORDERED: BUPIVACAINE 0.5 % 5 MG/1 ML MPF 30ML VIAL ONE (13:54)
--- NOTE | 2020-12-02 14:04 | History & Physical Bridge Note ---
Date of Service December 02, 2020 History & Physical Bridge Note I have examined the patient, reviewed the History & Physical and in the interval since the performance of the History & Physical I have noted the following changes of clinical significance: no changes noted
[2020-12-02] MEDS ORDERED: ePHEDrine sulfate 50 MG/ML AMP IV PRN (14:06)
[2020-12-02] MEDS ORDERED: ONDANSETRON INJ 2 MG/ML 2 ML VIAL IV PRN ×2 (14:06→19:35)
[2020-12-02] MEDS ORDERED: HYDROmorphone INJ 1 MG/ML SYRINGE IV PRN (14:06)
[2020-12-02] MEDS ORDERED: fentaNYL citrate 100 MCG/2 ML VIAL IV PRN (14:06)
[2020-12-02] MEDS ORDERED: DEXAMETHASONE SOD INJ 4 MG/ML VIAL ONE (15:55)
[2020-12-02] MEDS ORDERED: ONDANSETRON INJ 2 MG/ML 2 ML VIAL ONE (15:55)
--- NOTE | 2020-12-02 16:05 | Post Operative Brief Note ---
Immediate Post Op Note v1 Date of Surgery December 02, 2020 Pre & Post Diagnosis Operation Date: 12/02/20 14:45 Pre-Op Diagnosis: Left Thumb Carpometacarpal Joint Osteoarthritis Post-Op Diagnosis: Left Thumb Carpometacarpal Joint Osteoarthritis I identified the patient and participated in the time-out.: Yes Procedure Operation Date: 12/02/20 14:45 Actual Procedures p Left Thumb, Carpometacarpal Joint Arthroplasty ligament reconstruction tendon interposition with split flexor carpi radialis tendon auto graft (Left) - Luis Dhillon MD Surgeon Luis Dhillon MD [employer] Estimated Blood Loss 1 Findings Consistent with Post-Op Diagnosis Severe osteoarthritis CMC joint [id number] with large osteophytes Anesthesia Type General Complications none Disposition Disposition: Recovery Room Overlapping Procedure I was immediately available: during the entire case.
--- NOTE | 2020-12-02 16:53 | Anesthesiology Progress Note ---
Date of Service December 02, 2020 Anesthesia Post Procedure Vital Signs Vital Signs: Temp Pulse Pulse Resp BP Pulse Ox 12/02/20 16:45 66 14 181/99 H 100 12/02/20 16:35 66 14 178/104 H 100 12/02/20 16:29 36.1 C L 65 12 174/102 H 99 12/02/20 13:41 36.9 C 78 20 142/97 H 98 Pain Intensity Lower Neck: Pain Intensity: 2 Transfer of Care Handoff Completed per policy Notes Mental Status: alert / awake / arousable and participated in evaluation Patient Amnestic to Procedure: Yes Nausea / Vomiting: adequately controlled Pain: adequately controlled Airway Patency, RR, SpO2: stable & adequate BP & HR: stable & adequate Hydration State: stable & adequate Anesthetic Complications: no major complications apparent
[2020-12-02] MEDS ORDERED: METOCLOPRAMIDE HCL INJ 5 MG/ML 2 ML VIAL IV PRN (19:35)
[2020-12-02] MEDS ORDERED: NALOXONE HCL 0.4 MG/1 ML VIAL/CARP IV PRN (19:35)
[2020-12-02] MEDS ORDERED: bisacodyL 10 MG SUPP PR PRN (19:35)
[2020-12-02] MEDS ORDERED: MAGNESIUM HYDROXIDE SUSP 30 ML UDC PO PRN (19:35)
[2020-12-02] MEDS ORDERED: HYDROmorphone INJ 0.5 MG/0.5 ML SYR IV PRN (19:35)
[2020-12-02] MEDS ORDERED: oxyCODONE HCL IR 5 MG TAB (IMMEDIATE RELEASE) PO PRN (19:35)
--- NOTE | 2020-12-02 20:20 | Operative Report (OR) ---
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 The patient has tried conservative management over the years. She has had a previous CMC joint arthroplasty on her opposite hand. Did well with that and wants to proceed with that on her left hand now. Radiographs demonstrate she has [id number] in the CMC joint with large spurs with end-stage CMC joint osteoarthritis. PREOPERATIVE DIAGNOSIS: End-stage carpometacarpal joint osteoarthritis of the left hand. POSTOPERATIVE DIAGNOSIS: End-stage carpometacarpal joint osteoarthritis of the left hand. PROCEDURE PERFORMED: Left CMC joint arthroplasty with ligament reconstruction, tendon interposition using a split flexor carpi radialis tendon autograft. SURGEON: Luis Dhillon MD. RULING MACHINE OPERATOR: Andrews Waggoner PA-C. ANESTHESIA: General with local anesthetic. DESCRIPTION OF OPERATIVE PROCEDURE: The patient was placed under general anesthetic, placed supine a nd her left arm placed on an arm board. A pneumatic tourniquet was placed about her left upper extre mity. Left upper extremity was prepped and draped with ChloraPrep. The arm was elevated, exsanguina clau with an Esmarch bandage, pneumatic tourniquet was raised to 250 mmHg. A curvilinear hockey stick type incision was made starting at the dorsum of the CMC joint and extending down over the flexor ca rpi radialis tendon of the wrist. Two transverse incisions were made along the course of the flexor carpi radialis tendon and up the forearm to harvest the tendon. The skin was incised sharply and chapo e of the veins were cauterized. The sensory nerves of the radial nerve were dissected out and retracted and protected. The interval between the extensor brevis and abductor pollicis tendons was developed and the tendons were reflecte d off of the capsule with retractors. The radial artery was identified proximally and noted where it s location was throughout the procedure and protected with retractors. An incision was made longitud inally over the CMC joint and subperiosteal dissection using sharp dissection with a scalpel and with a periosteal elevator was used to free up the capsule of the CMC joint, exposing the carpometacarpal joint. There were large bone spurs over the dorsum of the trapezius. There were also bone spurs at the base of the first metacarpal. Some of these were resected with a rongeur. The capsule over the trapezius was then reflected off of the trapezius so that the trapezius could b e fully visualized. At this point, I used an artist chisel to split the trapezius and then remove th e trapezius piecemeal maintaining the integrity of the flexor carpi radialis tendon in the trapezius fossa. At this point, the articular surface of the first metacarpal was resected using an oscillatin g saw. Drill hole was made into the intramedullary canal, and a dorsal radial drill hole was made fo r passing of the graft through the first metacarpal. This was irrigated out and all debris was irrig ated out. The flexor carpi radialis tendon was then harvested harvesting 50% of the tendon on the radial side t o use for our graft. First, it was identified in the wrist. It was split with a scalpel. Then, an umbilical tape was placed around the tendon and then subcutaneous dissection performed along the tend on between the incisions and the umbilical tape was passed. Splitting it up to the musculotendinous j unction where the tendon was divided and then brought back down into the wrist. Some of the muscle w as removed from the most proximal aspect of the tendon and then the whipstitch was placed with a 3-0 Mersilene. Then, the tendon was passed down into the trapezius fossa and then split to the base of t he second metacarpal and this attachment was preserved there. A 3-0 Mersilene was placed into the de ep capsule for later suturing and this suture was set aside. Then, the Thierno suture passer was used to pass the graft through the first metacarpal intramedullary canal through the drill hole on the dorsal radial side and then it was looped back upon itself and t hen the first metacarpal was adducted to the second metacarpal to reapproximate the normal distance b etween the first and second metacarpal and then the graft was sutured to itself in that position main taining the normal length of the trapezius fossa. I used interrupted 4-0 FiberWire sutures to suture the graft to itself. Then, the remainder of the graft was made into an anchovy and sutured to the p revious 3-0 Mersilene in the capsule that was placed previously and this was tied down to the capsule in the fossa as the interposition. At this point, then after irrigation, the dorsal capsule was repaired with interrupted 3-0 Mersilene and 4-0 FiberWire sutures, getting a secure dorsal capsule repair, completing the reconstruction. Th e base of the thumb was stable with stress. After further irrigation, the local anesthetic was injec clau using plain 0.5% Marcaine in all incisions and at the reconstruction site. The skin was then catrachita sed with interrupted 4-0 nylon vertical mattress sutures. Sterile dressings were applied and a thumb spica splint leaving the IP joint free for range of motion. The patient had a return of normal capi llary refill to the extremity after the tourniquet was let down, had less than 1 mL of blood loss and tolerated the procedure well. There were no complications. There were no drains utilized. There w ere no specimens. Andrews Waggoner is my welder first class and he functioned as welder first class the entire procedure, silvana humphrey in soft tissue retraction and he assisted as necessary throughout the procedure as the first ass istant and he performed the skin closure and splint application and will participate in the postopera tive care of the patient. Job ID: [id number]
[2020-12-02] MEDS: ATORVASTATIN 10 MG TAB PO SCH (21:32)
[2020-12-02] MEDS: CHOLECALCIFEROL 1,000 UNITS 25 MCG TAB PO SCH (21:33)
[2020-12-02] MEDS: DOCUSATE SODIUM 100 MG CAP PO SCH (21:34)
[2020-12-02] MEDS: ISOSORBIDE MONO EXTENDED REL 30 MG TABCR PO SCH (21:34)
[2020-12-02] MEDS: LOSARTAN POTASSIUM 50 MG TAB PO SCH (21:35)
[2020-12-02] MEDS: ACETAMINOPHEN 500 MG TAB PO SCH (21:36)
[2020-12-02] MEDS: METOPROLOL SUCC 25MG EXT REL TAB PO SCH (21:36)
[2020-12-02] MEDS: SENNA 8.6 MG TAB PO SCH (21:37)
[2020-12-02] MEDS: SODIUM CHLORIDE 0.9% 1000ML 1,000 ML IV SCH (21:38)
[2020-12-03] MEDS: ACETAMINOPHEN 500 MG TAB PO SCH ×3 (05:40→20:39)
[2020-12-03] MEDS: SODIUM CHLORIDE 0.9% 1000ML 1,000 ML IV SCH (05:42)
--- NOTE | 2020-12-03 06:53 | Orthopedic Progress Note ---
Date of Service December 03, 2020 Assessment & Plan (1) Arthritis of carpometacarpal (CMC) joint of left thumb: Plan: POD#1 left thumb CMC arthroplasty -DVT prophylaxis-SCDs -Pain management as written -AM labs pending -Discussed elevation of extremities, finger motion -D/c planning-Patient lives alone. Will plan on discharge home today once home nursing is set up Admission and Anticipated Discharge Date Admission Date: December 02, 2020 Supervising Physician Co-Signing Physician Notes Patient seen and examined. Agree with GEORGES Waggoner's note as above. She is resting comfortably. She does note some soreness and pain in her left hand, but overall well controlled. She does live alone, and is considering going to [facility] rehab after discharge. quality improvement coordinator is involved and trying to set up a bed for tomorrow. Subjective POD#1 left thumb CMC arthroplasty. Resting in bed comfortably. Pain controlled. No other complaints. Denies chest pain, sob, dizziness, n/v/d., Review of Systems Review of Systems: All systems reviewed & are unremarkable except as noted in Subjective Physical Exam Physical Exam: Resting in bed comfortably. Dressing/splint to left hand is c/d/i. Fingers mobile. Distally n/v status and sensation intact. Mild swelling into fingers. cap refill < 3 s. Constitutional: well developed and well nourished; no acute distress Results & Data ([facility]) Vital Signs (Past 12 Hours) Vital Signs Temp Pulse Pulse Resp BP Pulse Ox 12/02/20 23:00 36.3 C L 76 20 160/86 H 96 12/02/20 21:20 77 16 164/86 H 95 12/02/20 20:50 71 15 163/85 H 95 12/02/20 20:20 36.3 C L 73 15 174/88 H 95 12/02/20 19:50 75 15 169/89 H 95 12/02/20 19:20 36.7 C 74 18 173/89 H 96 12/02/20 19:00 36.4 C L 70 14 175/83 H 94
[2020-12-03 07:19] LABS: Hematocrit (blood only) 32.7 % (37-47); Hemoglobin 10.8 g/dL (12.0-16.0); Mean Corpuscular Hemoglobin 32.5 pg (25-34); Mean Corpuscular Volume 98.5 fL (80-100); Mean Platelet Volume 9.5 fL (7.4-10.4); Platelet Count 217 K/uL (130-400); RDW Standard Deviation 50.3 fL (36.4-46.3); Red Blood Count 3.32 M/uL (4.2-5.4); White Blood Count 6.21 K/uL (4.8-10.8)
[2020-12-03] MEDS: MULTIVITAMIN TAB PO SCH (07:40)
[2020-12-03] MEDS: DOCUSATE SODIUM 100 MG CAP PO SCH ×2 (07:40→20:39)
[2020-12-03 07:52] LABS: BUN Creatinine Ratio 50.4 (10-20); Creatinine Clr Calc Pharmacy 106.9 ml/min; Est GFR (African American) 114.3 ml/min; Est GFR (Non-African American) 98.7 ml/min; Potassium 3.6 mmol/L (3.5-5.1)
[2020-12-03] MEDS: ATORVASTATIN 10 MG TAB PO SCH (20:38)
[2020-12-03] MEDS: CHOLECALCIFEROL 1,000 UNITS 25 MCG TAB PO SCH (20:38)
[2020-12-03] MEDS: ISOSORBIDE MONO EXTENDED REL 30 MG TABCR PO SCH (20:39)
[2020-12-03] MEDS: LOSARTAN POTASSIUM 50 MG TAB PO SCH (20:39)
[2020-12-03] MEDS: METOPROLOL SUCC 25MG EXT REL TAB PO SCH (20:39)
[2020-12-03] MEDS: SENNA 8.6 MG TAB PO SCH (20:39)
[2020-12-04] MEDS: ACETAMINOPHEN 500 MG TAB PO SCH ×2 (05:29→15:01)
--- NOTE | 2020-12-04 07:12 | Orthopedic Progress Note ---
Date of Service December 04, 2020 Assessment & Plan (1) Arthritis of carpometacarpal (CMC) joint of left thumb: Plan: POD#2 left thumb CMC arthroplasty -DVT prophylaxis-SCDs -Pain management as written -Discussed elevation of extremities, finger motion -D/c planning-Patient lives alone. Discharge held yesterday as patient wanted inpatient rehab. Now stating she is unsure if she wants to go home with vs inpatient rehab. [facility] should have a bed available today. Plan on discharge to [facility] once this is set up. If she decides on home with home health plan on discharge home today. Admission and Anticipated Discharge Date Admission Date: December 02, 2020 Subjective POD#2 left thumb CMC arthroplasty. Resting in bed comfortably. Pain controlled. Was having increasing pain last night. No other complaints. Denies chest pain, sob, dizziness, n/v/d., numbness/tingling Was to be discharge home with yesterday, however patient decided she wanted inpatient rehab so discharge was held. Review of Systems Review of Systems: All systems reviewed & are unremarkable except as noted in Subjective Physical Exam Physical Exam: Resting in bed comfortably. Dressing/splint to left hand is c/d/i. Fingers mobile. Mild swelling into fingers. Distally n/v status and sensation intact. cap refill < 3 s. Constitutional: well developed and well nourished; no acute distress Results & Data ([facility]) Vital Signs (Past 12 Hours) Vital Signs Temp Pulse Pulse Resp BP Pulse Ox 12/03/20 22:43 36.7 C 80 18 181/99 H 94 12/03/20 20:37 73 160/92 H
[2020-12-04] MEDS: DOCUSATE SODIUM 100 MG CAP PO SCH (08:55)
[2020-12-04] MEDS: MULTIVITAMIN TAB PO SCH (08:55)
--- NOTE | 2020-12-04 19:49 | Discharge Summary ---
Date of Service December 04, 2020 Admission HPI Per Admitting Provider 80 year old female with PMHx significant for HTN, neuropathy, skin Ca, LLE DVT, CAD with stent placement presents with longstanding left thumb pain. She has severe arthritis 1st CMC joint. She has failed conservative measures including cortisone injections and bracing. Pain interfering with her daily activities. She would like to proceed with surgical intervention. Patient denies headaches, sweats, fevers, chills, double vision, blurred vision, cough, sore throat, dysphagia, chest pain, sob, wheezing, n/v/d/c, numbness, tingling, fatigue, urinary symptoms, mood disorders. ROS positive for left thumb pain and stif fness. Admission Exam Per Admitting Provider Constitutional: well developed and well nourished; no acute distress Eyes: PERRL, conjunctivae normal, anicteric sclerae ENMT: external ear and nose normal, oropharynx normal Neck: trachea midline, no thyromegaly Respiratory: normal respiratory effort, lungs clear to auscultation Cardiovascular: RRR, no murmur, no edema Musculoskeletal: Left thumb: Active painful ROM with crepitation. Tenderness 1st CMC joint. Swelling over CMC joint with bony deformity noted at CMC joint. Positive basal joint grind test. Grasp and holding weakness Skin: no rashes, warm and dry Neurologic: patellar DTR's 2+ bilat, sensation intact Psychiatric: A+Ox3, euthymic affect Principal Diagnosis Left thumb CMC arthritis Discharge Exam Constitutional well developed and well nourished; no acute distress Eyes PERRL, conjunctivae normal, anicteric sclerae ENMT external ear and nose normal, oropharynx normal Neck trachea midline, no thyromegaly Respiratory normal respiratory effort, lungs clear to auscultation Cardiovascular RRR, no murmur, no edema Skin no rashes, warm and dry Neurologic patellar DTR's 2+ bilat, sensation intact Psychiatric A+Ox3, euthymic affect Discharge Data Allergies Allergy/AdvReac Type Severity Reaction Status Date / Time codeine Allergy Severe HIVES/DIFFICULTY Verified 12/02/20 13:28 BREATHING aspirin Allergy Intermediate "EYE Verified 12/02/20 13:28 HEMORRHAGES" atropine Allergy Intermediate HEART RACES Verified 12/02/20 13:28 diazepam Allergy Intermediate "PASSED Verified 12/02/20 13:28 OUT COLD",RASH ibuprofen Allergy Intermediate "TOLD NOT Verified 12/02/20 13:28 TO TAKE BECAUSE OF HEART" lidocaine Allergy Intermediate UNABLE TO Verified 12/02/20 13:28 BREATHE Penicillins Allergy Intermediate HIVES Verified 12/02/20 13:28 propoxyphene Allergy Intermediate "KNOCKED Verified 12/02/20 13:28 ME RIGHT OUT" Sulfa (Sulfonamide Allergy Intermediate GI UPSET Verified 12/02/20 13:28 Antibiotics) AND VIOLENT VOMITING tetanus toxoid, adsorbed Allergy Intermediate SEVERE Verified 12/02/20 13:28 HIVES AND THROAT CLOSING hydrocodone Allergy Mild Gastrointestinal Verified 12/02/20 13:28 Upset morphine Allergy Mild Gastrointestinal Verified 12/02/20 13:28 Upset pentazocine Allergy Mild GI UPSET Verified 12/02/20 13:28 tramadol Allergy Mild Gastrointestinal Verified 12/02/20 13:28 Upset Procedures Performed Operation Date: 12/02/20 14:45 Actual Procedures p Left Thumb, Carpometacarpal Joint Arthroplasty(Left) - Luis Dhillon MD Hospital Course (1) Arthritis of carpometacarpal (CMC) joint of left thumb: Patient presented for same day admission following left CMC joint arthroplasty on 12/02/20. She tolerated procedure well. The Patient had an uneventful hospital course. Post-operatively, her activity was progressed and well tolerated. Labs remained stable- lowest hemoglobin recorded: 10.8. Pain controlled on oral medications. Please refer to daily progress notes and PT notes for complete details. After exam on 12/04/20, patient was felt to be stable for discharge home with home heatl. Patient will f/u in the office in about 2 weeks for further evaluation including x-rays and incision check, sooner if having any issues or concerns. POD#2 left thumb CMC arthroplasty -DVT prophylaxis-SCDs -Pain management as written -Discussed elevation of extremities, finger motion -D/c planning-Patient lives alone. Discharge held yesterday as patient wanted inpatient rehab. Now stating she is unsure if she wants to go home with vs inpatient rehab. [facility] should have a bed available today. Plan on discharge to [facility] once this is set up. If she decides on home with home health plan on discharge home today. Lab Results 12/02/20 12/02/20 12/03/20 Range/Units Unknown Unknown 07:00 WBC 6.21 (4.8-10.8) K/uL RBC 3.32 L (4.2-5.4) M/uL Hgb 10.8 L (12.0-16.0) g/dL Hct 32.7 L (37-47) % MCV 98.5 (80-100) fL MCH 32.5 (25-34) pg MCHC 33.0 (32-36) g/dL RDW Std Deviation 50.3 H (36.4-46.3) fL RDW Coeff of Raul 14.0 (11.5-14.5) % Plt Count 217 (130-400) K/uL MPV 9.5 (7.4-10.4) fL Sodium (136-145) mmol/L Potassium (3.5-5.1) mmol/L Chloride (98-107) mmol/L Carbon Dioxide (21-32) mmol/L Anion Gap (3-11) BUN (7-18) mg/dl Creatinine (0.6-1.2) mg/dl Est Cr Clr Drug Dosing ml/min Est GFR ( Amer) ml/min Est GFR (Non-Af Amer) ml/min BUN/Creatinine Ratio (10-20) Glucose (70-99) mg/dl Calcium (8.5-10.1) mg/dl COVID-19 Eval Order Covid19 IDNow atMVTC SARS-CoV-2, RNA, NAAT NEGATIVE (NEGATIVE) 12/03/20 Range/Units 07:00 WBC (4.8-10.8) K/uL RBC (4.2-5.4) M/uL Hgb (12.0-16.0) g/dL Hct (37-47) % MCV (80-100) fL MCH (25-34) pg MCHC (32-36) g/dL RDW Std Deviation (36.4-46.3) fL RDW Coeff of Raul (11.5-14.5) % Plt Count (130-400) K/uL MPV (7.4-10.4) fL Sodium 138 (136-145) mmol/L Potassium 3.6 (3.5-5.1) mmol/L Chloride 107 (98-107) mmol/L Carbon Dioxide 25 (21-32) mmol/L Anion Gap 6.0 (3-11) BUN 19 H (7-18) mg/dl Creatinine 0.38 L (0.6-1.2) mg/dl Est Cr Clr Drug Dosing 106.9 ml/min Est GFR ( Amer) 114.3 ml/min Est GFR (Non-Af Amer) 98.7 ml/min BUN/Creatinine Ratio 50.4 H (10-20) Glucose 87 (70-99) mg/dl Calcium 8.0 L (8.5-10.1) mg/dl COVID-19 Eval Order SARS-CoV-2, RNA, NAAT (NEGATIVE) Total Time Total Time Spent Total Time Spent (In Minutes): 20 Discharge Plan Discharge Items Patient Disposition: Home - Home Health Services Reason For Visit: Left Thumb Carpometacarpal Joint Osteoarthritis Discharge Diagnosis: Left thumb CMC joint OA Activity: Per Instructions section Non-emergency contact: Surgeon Call non-emergency contact if: you have any medication questions, your pain is not controlled, your pain is concerning for you, you have a fever, your temperature is above 101, your wound has increased redness and your wound has increased drainage Follow-up/Referrals: Sophia Gaines, DO [Primary Care Provider] - Diet: Regular Addtl Attending Provider Instructions: ACTIVITY RECOMMENDATIONS: * Avoid lifting anything with left arm until your first post operative visit. SPECIAL CARE INSTRUCTIONS: * Your bandage should be left in place until your follow up appointment. * Some drainage onto the dressing may occur. This is normal. * If the bandage feels excessively tight, you may loosen the elastic bandage. Then call the physician's office for further instructions. * If possible, keep your hand elevated above the level of your heart for the first 2 post operative days. You may use a sling if necessary. * You should move your fingers regularly (50-100 motions per hour) unless otherwise instructed. SPECIAL PRECAUTIONS: * If you notice increased drainage, fever over 101 degrees F. or severe, unremitting pain, call your physician/office at . * You may have been prescribed pain medication. If you experience nausea and/or skin rash, discontinue this medication and contact our office for an alternative medication. FOLLOW UP VISIT: If appointment is not already scheduled: Please call [facility] to make a follow-up appointment after your surgery at . Stand-Alone Forms: My [facility] [employer], Opioid Pain Management, Smoking Cessation Medications and DC Order Prescriptions: New acetaminophen [Tylenol Extra Strength] 500 mg Tablet 1,000 mg PO Q8 Qty: 60 RF: 0 oxycodone 5 mg Tablet 5 - 10 mg PO .Q4h-6h MDD 6 PRN (Reason: pain) Qty: 30 RF: 0 Continued losartan 50 mg Tablet 50 mg PO HS RF: 0 atorvastatin 10 mg Tablet 10 mg PO HS RF: 0 isosorbide mononitrate 30 mg Tablet Extended Release 24 Hr 30 mg PO HS RF: 0 metoprolol succinate 25 mg Tablet Extended Release 24 Hr 25 mg PO HS RF: 0 cholecalciferol (vitamin D3) [Vitamin D3] 5,000 unit Tablet 5,000 unit PO HS RF: 0 solifenacin 10 mg tablet 10 mg PO QAM RF: 0 Discontinued acetaminophen [Tylenol Extra Strength] 500 mg Tablet 1,000 mg PO UD PRN (Reason: Pain) RF: 0 Discharge Orders: Discharge Order (Routine); Ordered 12/04/20 Ordered By: Andrews Waggoner Admission Data Admit Date/Time: 12/02/20 16:28 Attending Provider: Luis Dhillon Admit Provider: Luis Dhillon Primary Care Provider: Sophia Gaines Other Providers: [facility],Home Health Other Interventions: Discharge Summary Assessment (RN) Last Done: 12/04/20 11:22
== END 2020-12-04 16:30 | disposition home health service (06) | DRG 506 ==
LOC: ASU 12:50 → PACUINP 16:28 → 3N 16:29

== ENCOUNTER 2021-12-15 09:06 | Inpatient (IN) ==
--- NOTE | 2021-11-15 12:08 | PAT Medication Instructions ---
Medication Instructions Date of Service November 15, 2021 Home Medications Medication Instructions Recorded acetaminophen 500 mg tablet 1,000 mg PO Q8 #60 tab 12/03/20 (Tylenol Extra Strength) atorvastatin 10 mg tablet 10 mg PO HS cholecalciferol (vitamin D3) 125 mcg (5,000 unit) tablet (Vitamin D3) 5,000 unit PO HS isosorbide mononitrate 30 mg tablet,extended release 24 hr 30 mg PO HS losartan 50 mg tablet 50 mg PO HS metoprolol succinate 25 mg tablet,extended release 24 hr 25 mg PO HS acetaminophen 500 mg tablet (Tylenol Extra Strength) 1,000 mg PO Q8 mirabegron 50 mg tablet,extended release 24 hr (Myrbetriq) 50 mg PO HS solifenacin 10 mg tablet 10 mg PO HS Take morning of surgery With a small sip of water, OTHERWISE NOTHING TO EAT OR DRINK AFTER MIDNIGHT: acetaminophen 500 mg tablet (Tylenol Extra Strength) 1,000 mg PO Q8 (if needed) Take evening before surgery atorvastatin 10 mg tablet 10 mg PO HS cholecalciferol (vitamin D3) 125 mcg (5,000 unit) tablet (Vitamin D3) 5,000 unit PO HS isosorbide mononitrate 30 mg tablet,extended release 24 hr 30 mg PO HS losartan 50 mg tablet 50 mg PO HS metoprolol succinate 25 mg tablet,extended release 24 hr 25 mg PO HS acetaminophen 500 mg tablet (Tylenol Extra Strength) 1,000 mg PO Q8 (if needed) mirabegron 50 mg tablet,extended release 24 hr (Myrbetriq) 50 mg PO HS solifenacin 10 mg tablet 10 mg PO HS Other Notes If you have any questions please call us at [phone] or [phone] or [phone] or [phone]
--- NOTE | 2021-11-19 09:23 | Anesthesiology Consultation ---
Date of Service November 19, 2021 Assessment & Plan (1) Encounter for pre-operative examination: - Awaiting surgeon-ordered PCP preop evaluation (Flor Hoskins [facility]; 11/30) and cardiology (Vidya Parra [facility]; 11/26). - COVID screening: Per assessment on 11/19: No known COVID-19 positive contacts or current COVID-19 related symptoms. Travel screen negative. Patient vaccinated Surgeon arranging preop COVID testing. Awaiting results. Chart Review Chart Review: Patient seen in Pre Admission Testing Teaching & Discussion Pre-Anesthesia Teaching/Discussion Notes: Instructed NPO after midnight before surgery,except medications with 15 cc of water. Medication instructions provided according to the PAT guidelines. History Surgery Operation Date: 12/15/21 09:00 Proposed Procedures p Right Total Shoulder Arthroplasty Reverse - Luis Dhillon MD Height/Weight Height: 5 ft 6 in Weight: 67.7 kg Allergies Allergy/AdvReac Type Severity Reaction Status Date / Time codeine Allergy Severe HIVES/DIFFICULTY Verified 11/15/21 08:07 BREATHING aspirin Allergy Intermediate EYE Verified 11/16/21 11:59 HEMORRHAGES diazepam Allergy Intermediate "PASSED Verified 11/16/21 11:59 OUT COLD", RASH ibuprofen Allergy Intermediate "TOLD NOT Verified 11/15/21 08:07 TO TAKE BECAUSE OF HEART" lidocaine Allergy Intermediate UNABLE TO Verified 11/15/21 08:07 BREATHE Penicillins Allergy Intermediate HIVES Verified 11/15/21 08:07 propoxyphene Allergy Intermediate "KNOCKED Verified 11/15/21 08:07 ME RIGHT OUT" tetanus toxoid, adsorbed Allergy Intermediate SEVERE Verified 11/16/21 11:59 HIVES, THROAT CLOSING atropine AdvReac Intermediate HEART RACES Verified 11/16/21 11:59 Sulfa (Sulfonamide AdvReac Intermediate GI UPSET, Verified 11/16/21 11:59 Antibiotics) VIOLENT VOMITING hydrocodone AdvReac Mild GI UPSET Verified 11/16/21 11:59 morphine AdvReac Mild GI UPSET Verified 11/16/21 11:59 pentazocine AdvReac Mild GI UPSET Verified 11/16/21 11:59 tramadol AdvReac Mild GI UPSET Verified 11/16/21 11:59 Medications Home Medications Medication Instructions Recorded Confirmed Last Taken atorvastatin 10 mg tablet 10 mg PO HS 02/02/18 11/15/21 12/01/20 23:00 cholecalciferol (vitamin D3) 125 5,000 unit PO HS 02/02/18 11/15/21 12/01/20 23:00 mcg (5,000 unit) tablet (Vitamin D3) isosorbide mononitrate 30 mg 30 mg PO HS 02/02/18 11/15/21 12/01/20 23:00 tablet,extended release 24 hr losartan 50 mg tablet 50 mg PO HS 02/02/18 11/15/21 12/01/20 23:00 metoprolol succinate 25 mg 25 mg PO HS 02/02/18 11/15/21 12/01/20 23:00 tablet,extended release 24 hr acetaminophen 500 mg tablet 1,000 mg PO Q8 #60 tab 12/03/20 11/15/21 Unknown (Tylenol Extra Strength) mirabegron 50 mg tablet,extended 50 mg PO HS 11/15/21 11/15/21 Unknown release 24 hr (Myrbetriq) solifenacin 10 mg tablet 10 mg PO HS 11/15/21 11/15/21 Unknown Relief Eye Drops 1 drp OPHTHALMIC (EYE) DIRECTED 11/19/21 11/19/21 Unknown Restasis 1 drp OPHTHALMIC (EYE) BID 11/19/21 11/19/21 Unknown TobraDex 1 applic OPHTHALMIC (EYE) DAILY 11/19/21 11/19/21 Unknown Past Medical History Medical History Anemia CAD (coronary artery disease) LAD stent (2002) Dyslipidemia Dysphagia Esophageal dilatation 10 years ago Esophageal hernia Falls frequently [place] [facility] [place] MRI of the brain report negative for normal pressure hydrocephalus or acute changes. Gait d ysfunctional multifactorial -- neuropathy, spinal stenosis, arthritis. GERD (gastroesophageal reflux disease) History of basal cell carcinoma History of squamous cell carcinoma History of subdural hemorrhage Remote hx years ago, no residual issues HTN (hypertension) Neuropathy Osteoarthritis Spinal stenosis Exercise / Class Metabolic Activity III < 4 Walking/Shop/Light housework Past Family History Family History Mother Cancer Other No significant family history Past Surgical History Surgical History H/O bilateral hip replacements H/O eye surgery Left eye lense fragment removal H/O heart artery stent LAD (2002) H/O hernia repair History of adenoidectomy History of bunionectomy of left great toe History of colonoscopy History of dilatation and curettage X3 History of esophagogastroduodenoscopy (EGD) History of hysterectomy History of left cataract surgery History of open reduction and internal fixation (ORIF) procedure LUE x2 History of tonsillectomy History of total right hip replacement R/L History of uterine prolapse Hx of arthroscopy of left knee Hx of arthroscopy of right knee Hx of hand surgery Left Hx of right cataract extraction Hx of varicose vein ligation and stripping B/L LE Personal history of spine surgery 2014 (+ hardware, cervical rods x2, 12 screws) Status post Jacinto fundoplication Past Anesthesia History No Hx of Anesthesia Complications (except PONV) and No Family Hx of Anesthesia Complications History of PONV No Hx of Motion Sickness and History of PONV Social History Smoking Status: Never smoker Do You Dip or Chew Tobacco: No Hx Alcohol Use: No Hx Substance Use: No substance use type: does not use Review of Systems Patient denies chest pain, shortness of breath, fever, chills, cough, wheezing, palpitations. Physical Exam Vital Signs VITALS BP 158/95 P 80 TEMP 98.6 SP02 97%RA RESP 16 PHYSICAL Mildly decreased cervical extension range of motion. Full TMJ range of motion. TMD 3 finger breaths Mallampati Score 3 Dentition: intact Lungs: clear throughout to auscultation Cardiac: regular rate and rhythm, II/ systolic murmur Spine: normal Carotid arteries: negative bruit Extremities: no edema Lab Results Anesthesia Preop Results Results Anesthesia Widget: WBC 4.42 K/uL (4.8-10.8) L 11/19/21 Hgb 11.4 g/dL (12.0-16.0) L 11/19/21 Hct 33.8 % (37-47) L 11/19/21 Plt 256 K/uL (130-400) 11/19/21 Na 135 mmol/L (136-145) L 11/19/21 K 3.9 mmol/L (3.5-5.1) 11/19/21 Cl 103 mmol/L (98-107) 11/19/21 CO2 25 mmol/L (21-32) 11/19/21 BUN 27 mg/dl (6-23) H 11/19/21 Creat 0.58 mg/dl (0.6-1.2) L 11/19/21 Glucose Level 103 mg/dl (70-99(Fasting)) H 11/19/21 PT 10.9 Seconds (9.0-12.0) 11/19/21 PTT 29.6 Seconds (21.0-31.0) 11/19/21 INR 1.0 (0.9-1.1) 11/19/21 HA1c 5.8 % (4.5-5.6) H 11/19/21 Urine Color Yellow 11/19/21 Urine Appearance Clear (Clear) 11/19/21 Urine pH 5.5 (4.5-7.5) 11/19/21 Urine Specific [place] 1.014 (1.000-1.030) 11/19/21 Urine Protein Negative (Negative) 11/19/21 Urine Glucose (UA) Negative (Negative) 11/19/21 Urine Ketones Negative (Negative) 11/19/21 Urine Blood Negative (Negative) 11/19/21 Urine Nitrite Positive (Negative) A 11/19/21 Urine Bilirubin Negative (Negative) 11/19/21 Urine Urobilinogen Negative (Negative) 11/19/21 Urine Leukocyte Esterase 1+ (Negative) H 11/19/21 Urine WBC (Auto) 5-10 /hpf (0-5) H 11/19/21 Urine RBC (Auto) 0-4 /hpf (0-4) 11/19/21 Urine Hyaline Casts (Auto) 0 /lpf (0-5) 11/19/21 Urine Epithelial Cells (Auto) 10-20 /lpf (0-5) H 11/19/21 Urine Bacteria (Auto) 4+ (Negative) H 11/19/21 Blood Type A Positive 11/19/21 Antibody Screen NEGATIVE 11/19/21 Testing Laboratory Results Surgeon's office made aware of abnormal UA* Electrocardiogram Date: 11/19/21 SR with first degree AVB at 74bpm. LAE. Chest X-Ray Date: 11/19/21 FINDINGS: The cardiac silhouette is enlarged. Atherosclerosis of the thoracic aorta. Hyperinflation with diaphragmatic flattening. No pneumothorax, pleural effusion, airspace consolidation or overt pulmonary edema. Cervical spinal fusion hardware with left humeral ORIF hardware. Lumbar levoscoliosis. IMPRESSION: No acute process. Echocardiogram Date: 09/20/17 EF:60-65% The left ventricle is normal in size. Mild concentric LVH. LV systolic function is normal. LV wall motion is normal. Aortic valve sclerosis moderate, without significant aortic valvular stenosis. The aortic root is normal size. There is no pericardial effusion.
--- NOTE | 2021-12-14 19:49 | History & Physical Report ---
Date of Service December 14, 2021 Assessment & Plan (1) Primary osteoarthritis, right shoulder: Plan: Treatment options discussed with patient. She has failed conservative measures and would like to proceed with surgical intervention. Risks, benefits and alternatives to surgery including but not limited to infection, DVT, pain, stiffness, need for revision surgery, damage to blood vessels, damage to nerves, PE, , were discussed with the patient and they wish to proceed. Plan on right reverse total shoulder arthroplasty scheduled for [facility] on 12/15/21. Will plan on inpatient rehab post op. All questions answered. F/u post op. History of Present Illness Chief Complaint: Right shoulder pain Primary Care Provider: Sophia Gaines DO 81 year old female with PMHx significant for CAD, high cholesterol, GERD, hx of skin ca, HTN presents with ongoing right shoulder pain. Pain interfering with her ability to carry out daily activities. She has failed conservative measures and would like to proceed with surgical intervention. Patient denies headaches, sweats, fevers, chills, double vision, blurred vision, cough, sore throat, dysphagia, chest pain, sob, wheezing, n/v/d/c, numbness, tingling, fatigue, urinary symptoms, mood disorders. ROS positive for right shoulder pain and stiffness. Allergies Allergy/AdvReac Type Severity Reaction Status Date / Time codeine Allergy Severe HIVES/DIFFICULTY Verified 11/15/21 08:07 BREATHING aspirin Allergy Intermediate EYE Verified 11/16/21 11:59 HEMORRHAGES diazepam Allergy Intermediate "PASSED Verified 11/16/21 11:59 OUT COLD", RASH ibuprofen Allergy Intermediate "TOLD NOT Verified 11/15/21 08:07 TO TAKE BECAUSE OF HEART" lidocaine Allergy Intermediate UNABLE TO Verified 11/15/21 08:07 BREATHE Penicillins Allergy Intermediate HIVES Verified 11/15/21 08:07 propoxyphene Allergy Intermediate "KNOCKED Verified 11/15/21 08:07 ME RIGHT OUT" tetanus toxoid, adsorbed Allergy Intermediate SEVERE Verified 11/16/21 11:59 HIVES, THROAT CLOSING atropine AdvReac Intermediate HEART RACES Verified 11/16/21 11:59 Sulfa (Sulfonamide AdvReac Intermediate GI UPSET, Verified 11/16/21 11:59 Antibiotics) VIOLENT VOMITING hydrocodone AdvReac Mild GI UPSET Verified 11/16/21 11:59 morphine AdvReac Mild GI UPSET Verified 11/16/21 11:59 pentazocine AdvReac Mild GI UPSET Verified 11/16/21 11:59 tramadol AdvReac Mild GI UPSET Verified 11/16/21 11:59 Home Medications Medication Instructions Recorded Confirmed Type atorvastatin 10 mg tablet 10 mg PO HS 02/02/18 11/15/21 History cholecalciferol (vitamin D3) 125 5,000 unit PO HS 02/02/18 11/15/21 History mcg (5,000 unit) tablet (Vitamin D3) isosorbide mononitrate 30 mg 30 mg PO HS 02/02/18 11/15/21 History tablet,extended release 24 hr losartan 50 mg tablet 50 mg PO HS 02/02/18 11/15/21 History metoprolol succinate 25 mg 25 mg PO HS 02/02/18 11/15/21 History tablet,extended release 24 hr acetaminophen 500 mg tablet 1,000 mg PO Q8 #60 tabs 12/03/20 11/15/21 Rx (Tylenol Extra Strength) mirabegron 50 mg tablet,extended 50 mg PO HS 11/15/21 11/15/21 History release 24 hr (Myrbetriq) solifenacin 10 mg tablet 10 mg PO HS 11/15/21 11/15/21 History Relief Eye Drops 1 drp ophthalmic (eye) DIRECTED 11/19/21 11/19/21 History Restasis 1 drp ophthalmic (eye) BID 11/19/21 11/19/21 History TobraDex 1 applic ophthalmic (eye) DAILY 11/19/21 11/19/21 History Past Med/Surg History Medical History Anemia CAD (coronary artery disease) LAD stent (2002) Dyslipidemia Dysphagia Esophageal dilatation 10 years ago Esophageal hernia [place] frequently [place] [facility] [place] MRI of the brain report negative for normal pressure hydrocephalus or acute changes. Gait dysfunctional multifactorial -- neuropathy, spinal stenosis, arthritis. GERD (gastroesophageal reflux disease) History of basal cell carcinoma History of squamous cell carcinoma History of subdural hemorrhage Remote hx years ago, no residual issues HTN (hypertension) Neuropathy Osteoarthritis Spinal stenosis Surgical History H/O bilateral hip replacements H/O eye surgery Left eye lense fragment removal H/O heart artery stent LAD (2002) H/O hernia repair History of adenoidectomy History of bunionectomy of left great toe History of colonoscopy History of dilatation and curettage X3 History of esophagogastroduodenoscopy (EGD) History of hysterectomy History of left cataract surgery History of open reduction and internal fixation (ORIF) procedure LUE x2 History of tonsillectomy History of total right hip replacement R/L History of uterine prolapse Hx of arthroscopy of left knee Hx of arthroscopy of right knee Hx of hand surgery Left Hx of right cataract extraction Hx of varicose vein ligation and stripping B/L LE Personal history of spine surgery 2014 (+ hardware, cervical rods x2, 12 screws) Status post Jacinto fundoplication Family History Mother Cancer Other No significant family history Social History Smoking Status: Never smoker Second Hand Exposure: No; Hx Alcohol Use: No Hx Substance Use: No Preferred Language: Ghanaian Communication Ability: Effective 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 Beliefs That Will Affect Care: None marital status: Single Current Living Situation: Alone Feels Safe at Home: Yes Assistive Devices: Cane and Glasses Review of Systems All systems reviewed & are unremarkable except as noted in HPI & below Physical Exam Constitutional: well developed and well nourished; no acute distress Eyes: PERRL, conjunctivae normal, anicteric sclerae ENMT: external ear and nose normal, oropharynx normal Neck: trachea midline, no thyromegaly Respiratory: normal respiratory effort, lungs clear to auscultation Cardiovascular: Rate/Rhythm: regular rate and regular rhythm Heart Sounds: + murmur (systolic murmur) Extremities: no edema Musculoskeletal: Right shoulder: Tenderness anterior glenoid and anterolateral acromion. Crepitation with ROM. Positive impingement signs. FF to 150 degrees, abduction to 100 degrees, ER to 30 degrees. Pain and weakness with strength testing. Skin: no rashes, warm and dry Neurologic: patellar DTR's 2+ bilat, sensation intact Psychiatric: A+Ox3, euthymic affect Results & Data ([facility]) Diagnostic Findings right shoulder radiographs demonstrate degenerative changes GH joint with joint space narrowing and periarticular osteophyte formation. MRI showns significant rotator cuff tendinopathy.
[~2021-12-15 09:06] MED LIST changes: +ACETAMINOPHEN 500 MG TAB PO SCH; +BUPIVACAINE 0.5 % 5 MG/1 ML PF 10ML VIAL ONE; +FAMOTIDINE 20 MG TAB PO SCH; +GABAPENTIN 300 MG CAP PO SCH; +TRANEXAMIC ACID 1,000 MG **IV Intra-op IV SCH; +TRANEXAMIC ACID 1,000 MG **IV Pre-op IV SCH; -VANCOMYCIN HCL 1,000 MG/270 ML BAG IV SCH; +ceFAZolin 1000MG 1,000 MG/7.5 ML SYR IV SCH; +dexAMETHasone 4 MG TAB PO SCH
[2021-12-15] MEDS ORDERED: ROCURONIUM BROMIDE 10 MG/ML 5 ML VIAL IV ONE ×4 (09:53)
[2021-12-15] MEDS ORDERED: fentaNYL citrate 100 MCG/2 ML VIAL ONE (09:53)
[2021-12-15] MEDS ORDERED: MIDAZOLAM HCL 1 MG/ML 2ML VIAL ONE (09:53)
[2021-12-15] MEDS ORDERED: PROPOFOL IV EMULSION 10 MG/ML 20 ML VIAL IV ONE (09:53)
--- NOTE | 2021-12-15 10:06 | History & Physical Bridge Note ---
Date of Service December 15, 2021 History & Physical Bridge Note I have examined the patient, reviewed the History & Physical and in the interval since the performance of the History & Physical I have noted the following changes of clinical significance: no changes noted
[2021-12-15] MEDS ORDERED: ONDANSETRON INJ 2 MG/ML 2 ML VIAL IV PRN ×2 (10:37→15:19)
[2021-12-15] MEDS ORDERED: PROMETHAZINE HCL 6.25 MG in SODIUM CHLORIDE 0.9% 50 ML IV PRN (10:37)
[2021-12-15] MEDS ORDERED: fentaNYL citrate 100 MCG/2 ML VIAL IV PRN (10:37)
[2021-12-15] MEDS ORDERED: ATROPINE SULFATE 0.1 MG/ML 10ML SYR IV PRN (10:37)
[2021-12-15] MEDS ORDERED: DEXAMETHASONE SOD INJ 4 MG/ML VIAL ONE (12:33)
[2021-12-15] MEDS ORDERED: ONDANSETRON INJ 2 MG/ML 2 ML VIAL ONE (12:33)
[2021-12-15] MEDS ORDERED: NEOSTIGMINE METHYLSULFATE 1 MG/ML 10ML VIAL ONE (14:08)
[2021-12-15] MEDS ORDERED: GLYCOPYRROLATE 0.2 MG/ML VIAL ONE (14:08)
[2021-12-15] MEDS ORDERED: LABETALOL HCL IV 5 MG/ML 20ML IV ONE (14:23)
--- NOTE | 2021-12-15 14:37 | Operative Report ---
Post Operative Report Pre & Post Diagnosis Operation Date: 12/15/21 11:00 Pre-Op Diagnosis: Right shoulder status post proximal humerus fracture with glenohumeral osteoarthritis Post-Op Diagnosis: Right shoulder status post proximal humerus fracture with advanced glenohumeral osteoarthritis, biceps tendinopathy, partial tearing rotator cuff with rotator cuff tendinopathy, chronic glenohumeral synovitis. I identified the patient and participated in the time-out.: Yes Procedure Operation Date: 12/15/21 11:00 Actual Procedures p Right Reverse Total Shoulder Arthroplasty, biceps tenodesis(Right) - Luis Dhillon MD Surgeon Luis Dhillon MD Stone Grader Genaro SU Estimated Blood Loss 75 Findings Consistent with Post-Op Diagnosis Specimens Humeral head Drains 2 Hemovac Anesthesia Type General Regional Complications none Disposition Disposition: Recovery Room Indications 81-year-old female who had a fall had a fractured proximal humerus and had conservative management of this. There was some intra-articular component to the fracture and patient's had chronic pain swelling synovitis and advanced glenohumeral osteoarthritis. Description of Procedure The patient was taken to the operating room and anesthetized under regional block and general anesthetic. The patient was positioned on the operating table in a 30 beach chair position with a towel roll under the medial border of the right scapula. The arm was draped free to be able to manipulate the shoulder as needed. The right upper extremity was prepped and draped in usual sterile fashion. Exam demonstrated [id number] crepitation with range of motion. 120 degrees forward flexion 90 degrees abduction and 30 degrees external rotation. An anterior deltopectoral approach was performed. A longitudinal incision was made in the deltopectoral interval. The skin was incised sharply. Subcutaneous flaps were elevated off the fascia. The cephalic vein was dissected out and retracted lateral with the deltoid. The clavipectoral fascia was divided at the lateral margin of the conjoined tendon and extended up to the CA ligament. The following findings were noted: There was large fluid collection extending up the rotator interval extending over the subscapularis tendon. There was tendinopathy of the subscapularis but subscapularis was not torn. There was tendinopathy of the supraspinatus tendon with some partial undersurface tearing of the supraspinatus and infraspinatus. There was marked inflammatory response around the biceps tendon proximally with thickened tenosynovitis around the biceps and the widened biceps proximally consistent with tendinopathy.. The upper centimeter of the pectoralis was released for inferior exposure. A self-retaining retractor was placed. the biceps tendon was tenodesed to the pectoralis tendon with #2 FiberWire. The proximal biceps was resected. The subscapularis muscle fibers were split longitudinally at the level of the circumflex vessels. The circumflex vessels were identified and tied off with silk ties and divided laterally. A Kitner elevator was used to free up the inferior fibers of the subscapularis off of the capsule. The axillary nerve was identified with a tug test and protected with a blunt Yung retractor between the nerve and the capsule. The subscapularis tendon was then taken down off of the lesser tuberosity subperiosteally, a Vicryl traction suture was placed and a subperiosteal dissection was performed along the neck of the humerus as the arm was gradually externally rotated exposing the humeral head. The humeral head findings demonstrated a large V shaped divot in the humeral head due to the fracture. There were rimming osteophytes laterally and inferiorly. The articular surface of the humeral head was down to bone. retractors were readjusted and the inferior osteophytes were all resected using an artist chisel. A Mijares elevator was used to assist in releasing the capsule of the neck of the humerus. The capsule was divided with Eastman scissors down to the glenoid released off the anterior glenoid and the rotator interval was released to meet the capsular release and a 360 release of the subscapularis was accomplished. A Fukuda retractor was placed into the joint retracting the humeral head posterior. Glenoid findings demonstrated complete eburnated bone with complete loss of all articular cartilage with central type A wear pattern. There was anterior and anterior- inferior bone spurs. The labrum and biceps tendon was resected. an anterior-inferior and posterior inferior capsular release were performed with electrocautery and a Mijares elevator on bone with the axillary nerve protected inferiorly by the retractor. Attention was then taken to the humeral preparation. The supraspinatus was released and the undersurface tears were debrided. The cutting guide was placed into the humeral head. It was positioned at 20 of retroversion. Oscillating saw was used to resect the humeral head giving the cut above the level of the posterior rotator cuff insertion site. The humerus was then prepared for the stem. I used the ascend flex stem from [employer]. The sizing broaches were used followed by trial broaches up to a size 5B long which had the appropriate fit and fill. The appropriate sized cut protector was placed. The humerus was then retracted posterior to the glenoid. The glenoid was sized for a 25 mm baseplate. The guide for the baseplate was positioned in a 10 inferior tilt and the central drill hole was made. The reamer for the 25 mm baseplate was used. The central drill was widened for the peg. The Tornier hydroxyapatite coated aequalis 25 mm baseplate was impacted into position. The base plate was transfixed with superior and inferior locking screws and anterior and posterior compression screws with stable fixation. The fan reamer was used for the 36 millimeter glenoid sphere. After irrigation the standard 36 mm glenoid sphere was impacted onto the baseplate and the security screw was tightened. Attention was taken back to the humerus. The cut protector was removed and the plus or high offset humeral tray trial was assembled to the trial stem rotated appropriately to get bony coverage and then screwed in position. A trial reduction was performed. A 9 mm, 36 trial insert demonstrated good stability and no shuck. The trials were removed. 3 drill holes are made into the harder bone in the bicipital groove area and 3 #5 FiberWire sutures were placed transosseously. The canal was irrigated with antibiotic solution with bacitracin. The final component was assembled. The final component was Tornier ascend flex size 5B long stem assembled to the plus or high offset tray and a 9 mm, 36 polyethylene reversed insert. This was then impacted into the humerus with a tight press-fit. It was reduced to the glenoid sphere. Stability was verified. Subscapularis was repaired with the #5 FiberWire sutures using Valente-Mahesh suture technique. Lateral row soft tissue repair was performed with #2 FiberWire [id number] sutures. I was able to repair the supraspinatus laterally approximating it to the upper subscapularis lateral rotator interval area. Medial portion was left unrepaired. The pectoralis was repaired with #2 FiberWire [id number] sutures reinforcing the biceps tendon tenodesis. The arm was taken through a range of motion which demonstrated 130 degrees forward flexion 100 degrees abduction and 45 degrees external rotation without any tension on repair. The implant was stable through the range of motion tested. The wound was copiously irrigated. 2 Hemovac drains were placed. The deltopectoral interval was closed with [id number] #1 Vicryl sutures. The subcutaneous tissues were closed with 2-0 Vicryl sutures. The skin was closed with isabel. Sterile dressings were applied and a shoulder immobilizer. Genaro SU my physician as alfreda acted as first beater throughout the procedure .He performed functions including patient positioning, arm positioning, prepping and draping, soft tissue retraction, instrument management, suture management and performed the subcutaneous and skin closure and will participate in the postoperative care of the patient. I attest to the content of the Intraoperative Record and any orders documented therein. Any exceptions are noted below.
--- NOTE | 2021-12-15 15:06 | XRay Report ---
XR shoulder RT min 2V routine CLINICAL HISTORY: Post shoulder surgery. Status post total shoulder replacement COMPARISON STUDY: No previous studies for comparison. TECHNIQUE: 2 right shoulder views FINDINGS: The patient is status post total shoulder replacement with humeral head and glenoid compone nts. The prosthetic components are in anatomic alignment with no acute abnormality identified. Skin s taples are present from the recent procedure. IMPRESSION: 1. Status post total shoulder replacement ACT 112: Negative or not required by law. Electronically signed by: Johnathan Wylie M.D. 12/15/2021 3:04 PM
--- NOTE | 2021-12-15 15:06 | Anesthesiology Progress Note ---
Date of Service December 15, 2021 Anesthesia Post Procedure Vital Signs Vital Signs: Temp Pulse Pulse Resp BP BP Pulse Ox 12/15/21 15:00 36.4 C L 65 19 153/89 H 95 12/15/21 14:50 64 12 154/91 H 99 12/15/21 14:40 63 11 L 175/99 H 99 12/15/21 14:32 36.4 C L 67 12 175/102 H 98 12/15/21 10:44 178/116 H 185/116 H 12/15/21 09:54 36.9 C 82 16 98 O2 Del Method O2 Flow Rate 12/15/21 15:00 Room Air 12/15/21 14:50 Oxymask 4 12/15/21 14:40 Oxymask 6 12/15/21 14:32 Oxymask 8 12/15/21 10:44 12/15/21 09:54 Room Air Pain Intensity Right Shoulder: Pain Intensity: 10 Transfer of Care Handoff Completed per policy Notes Mental Status: alert / awake / arousable and participated in evaluation Patient Amnestic to Procedure: Yes Nausea / Vomiting: adequately controlled Pain: adequately controlled Airway Patency, RR, SpO2: stable & adequate BP & HR: stable & adequate Hydration State: stable & adequate Anesthetic Complications: no major complications apparent and Pt Satisfied with anesthetic care
[2021-12-15] MEDS ORDERED: METOCLOPRAMIDE HCL INJ 5 MG/ML 2 ML VIAL IV PRN (15:19)
[2021-12-15] MEDS ORDERED: VANCOMYCIN CONSULT ACTIVE PRN (15:19)
[2021-12-15] MEDS ORDERED: SODIUM CHLORIDE 0.9% 1000ML 1,000 ML IV SCH (15:19)
[2021-12-15] MEDS ORDERED: MAGNESIUM HYDROXIDE SUSP 30 ML UDC PO PRN (15:19)
[2021-12-15] MEDS ORDERED: NALOXONE HCL 0.4 MG/1 ML VIAL/CARP IV PRN (15:19)
[2021-12-15] MEDS ORDERED: bisacodyL 10 MG SUPP PR PRN (15:19)
[2021-12-15] MEDS ORDERED: HYDROmorphone INJ 0.5 MG/0.5 ML SYR IV PRN (15:19)
[2021-12-15] MEDS: oxyCODONE HCL IR 5 MG TAB (IMMEDIATE RELEASE) PO PRN (16:37)
--- NOTE | 2021-12-15 16:54 | Hospitalist Consultation ---
Date of Consultation December 15, 2021 Assessment & Plan (1) Primary osteoarthritis, right shoulder: POD#[address] Dhillon Activity and wound care orders as per ortho Pain control with bowel regimen PT/OT Monitor H/H for acute blood loss anemia and transfuse blood products PRN EBL 75cc (2) CAD (coronary artery disease): (3) Aortic valve sclerosis: Appears stable, no reports of chest pain Preop echo showed EF 60 to 64%, grade 1 diastolic dysfunction, moderately calcified aortic valve without stenosis Continue beta-isauro, statin, nitrate. Noted intolerance to aspirin. (4) HTN (hypertension): BP mildly elevated, likely situational Continue home doses of isosorbide, metoprolol, losartan, make adjustments as needed (5) DVT prophylaxis: ASA 81mg BID ordered by ortho however patient has been intolerant in the past -- Ortho notified of intolerance Thank you for this consultation. We will follow the patient with you during their hospital stay. You can reach a member of the [facility] Hospitalist Team 12/12 [facility] [place] Text. Plan Attending Addendum: care coordinated with CNSHELIA De Santiago please refer to her notes for full details, I agree with her notes patient seen and examined, records reviewed by myself as well on exam, patient seen sitting up, eating dinner, mild R shoulder discomfort no chest pain, dyspnea, palpitations, dizziness R TSA - DVT px per Ortho HTN - continue usual imdur, Losartan, metoprolol other diagnoses and plan of care as per HARRIETT De Santiago's notes Ady Thomas MD History of Present Illness Reason for Consultation: Postop medical management Requesting Physician: Dr. Dhillon History of Present Illness 81-year-old female with PMH CAD s/p LAD stenting in 2002, HTN, GERD, osteoarthritis, aortic sclerosis without stenosis, and other problems listed below who is s/p right TSA today by Dr. Dhillon. Postoperatively, the patient is doing well. She reports her pain is well controlled. Denies numbness or tingling to the RUE. No chest pain or shortness of breath. Denies lightheadedness and dizziness. No abdominal pain or nausea. Patient has voided since surgery. Allergies Allergy/AdvReac Type Severity Reaction Status Date / Time codeine Allergy Severe HIVES/DIFFICULTY Verified 12/15/21 09:44 BREATHING aspirin Allergy Intermediate EYE Verified 12/15/21 09:44 HEMORRHAGES diazepam Allergy Intermediate "PASSED Verified 12/15/21 09:44 OUT COLD", RASH ibuprofen Allergy Intermediate "TOLD NOT Verified 12/15/21 09:44 TO TAKE BECAUSE OF HEART" lidocaine Allergy Intermediate UNABLE TO Verified 12/15/21 09:44 BREATHE Penicillins Allergy Intermediate HIVES Verified 12/15/21 09:44 propoxyphene Allergy Intermediate "KNOCKED Verified 12/15/21 09:44 ME RIGHT OUT" tetanus toxoid, adsorbed Allergy Intermediate SEVERE Verified 12/15/21 09:44 HIVES, THROAT CLOSING atropine AdvReac Intermediate HEART RACES Verified 12/15/21 09:44 Sulfa (Sulfonamide AdvReac Intermediate GI UPSET, Verified 12/15/21 09:44 Antibiotics) VIOLENT VOMITING hydrocodone AdvReac Mild GI UPSET Verified 12/15/21 09:44 morphine AdvReac Mild GI UPSET Verified 12/15/21 09:44 pentazocine AdvReac Mild GI UPSET Verified 12/15/21 09:44 tramadol AdvReac Mild GI UPSET Verified 12/15/21 09:44 Home Medications Medication Instructions Recorded Confirmed Type atorvastatin 10 mg tablet 10 mg PO HS 02/02/18 12/15/21 History cholecalciferol (vitamin D3) 125 5,000 unit PO HS 02/02/18 12/15/21 History mcg (5,000 unit) tablet (Vitamin D3) isosorbide mononitrate 30 mg 60 mg PO HS 02/02/18 12/15/21 History tablet,extended release 24 hr losartan 50 mg tablet 50 mg PO HS 02/02/18 12/15/21 History metoprolol succinate 25 mg 25 mg PO HS 02/02/18 12/15/21 History tablet,extended release 24 hr acetaminophen 500 mg tablet 1,000 mg PO Q8 #60 tabs 12/03/20 12/15/21 Rx (Tylenol Extra Strength) mirabegron 50 mg tablet,extended 50 mg PO HS 11/15/21 12/15/21 History release 24 hr (Myrbetriq) Relief Eye Drops 1 drp ophthalmic (eye) DIRECTED 11/19/21 12/15/21 History Restasis 1 drp ophthalmic (eye) BID 11/19/21 12/15/21 History TobraDex 1 applic ophthalmic (eye) DAILY 11/19/21 12/15/21 History Patient History Medical History Anemia Arthritis of carpometacarpal (CMC) joint of left thumb CAD (coronary artery disease) LAD stent (2002) Cystocele, midline Diaphragmatic hernia Dysphagia Esophageal dilatation 10 years ago Esophageal hernia Falls frequently Has been evaluated by [facility] [place] (03/11/20). MRI of the brain report negative for normal pressure hydrocephalus or acute changes. Gait dysfunctional multifactorial -- neuropathy, spinal stenosis, arthritis. GERD (gastroesophageal reflux disease) History of basal cell carcinoma History of squamous cell carcinoma History of subdural hemorrhage Remote hx years ago, no residual issues HTN (hypertension) Hypercholesterolemia Idiopathic polyneuropathy Lumbar radiculopathy Memory loss or impairment Neuropathy Osteoarthritis Osteoporosis Second degree uterine prolapse Spinal stenosis Thrombophlebitis Venous insufficiency Vulvar irritation lichenoid changes on path report Surgical History (Updated 12/15/21 @ 16:45 by HARRIETT Casper) H/O bilateral hip replacements H/O eye surgery Left eye lense fragment removal H/O heart artery stent LAD (2002) H/O hernia repair History of adenoidectomy History of bunionectomy of left great toe History of colonoscopy History of dilatation and curettage X3 History of esophagogastroduodenoscopy (EGD) History of hysterectomy History of left cataract surgery History of open reduction and internal fixation (ORIF) procedure LUE x2 History of tonsillectomy History of total right hip replacement R/L History of uterine prolapse Hx of arthroscopy of left knee Hx of arthroscopy of right knee Hx of hand surgery Left Hx of right cataract extraction Hx of varicose vein ligation and stripping B/L LE Personal history of spine surgery 2014 (+ hardware, cervical rods x2, 12 screws) Status post Jacinto fundoplication Family History (Updated 12/15/21 @ 16:50 by HARRIETT Casper) Mother Cancer Social History Smoking Status: Never smoker Second Hand Exposure: No; Do You Dip or Chew Tobacco: No; Tobacco Cessation Education Requested by Patient: No Hx Alcohol Use: No Hx Substance Use: No Preferred Language: Vincentian Communication Ability: Effective 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 Beliefs That Will Affect Care: None marital status: Single Current Living Situation: Alone Other Information That Helps Us Care for You: No Feels Safe at Home: Yes Safety Concerns: Feels Safe At This Time Assistive Devices: Cane and Glasses Review of Systems Review of Systems: ROS per HPI, all other systems reviewed and negative Physical Exam Constitutional: WD/WN, vitals as above Eyes: PERRL, conjunctivae normal, anicteric sclerae ENMT: external ear and nose normal, oropharynx normal Respiratory: normal respiratory effort, lungs clear to auscultation Cardiovascular: Rate/Rhythm: regular rate and regular rhythm Heart Sounds: + murmur (Grade 2/6, systolic) Vessels: normal peripheral pulses Extremities: no edema Gastrointestinal (Abdomen): normal bowel sounds, soft, nontender, no hepatosplenomegaly Musculoskeletal: S/p right shoulder surgery, surgical dressing CDI, drain in place draining bloody drainage, CSM checks intact to RUE Skin: no rashes, warm and dry Neurologic: PERRL, EOMI, accommodation nl, no face palsy, no dysarthria Psychiatric: A+Ox3, euthymic affect Results & Data Results & Data ([facility]) Vital Signs (Past 12 Hours) Vital Signs Temp Pulse Pulse Resp BP BP Pulse Ox 12/15/21 16:21 70 18 159/96 H 95 12/15/21 15:50 36.8 C 72 16 166/92 H 95 12/15/21 15:20 12/15/21 15:20 36.3 C L 66 16 165/95 H 96 12/15/21 15:10 65 14 164/91 H 94 12/15/21 15:00 36.4 C L 65 19 153/89 H 95 12/15/21 14:50 64 12 154/91 H 99 12/15/21 14:40 63 11 L 175/99 H 99 12/15/21 14:32 36.4 C L 67 12 175/102 H 98 12/15/21 10:44 178/116 H 185/116 H 12/15/21 09:54 36.9 C 82 16 98 O2 Del Method O2 Flow Rate 12/15/21 16:21 Room Air 12/15/21 15:50 Room Air 12/15/21 15:20 Room Air 12/15/21 15:20 Room Air 12/15/21 15:10 Room Air 12/15/21 15:00 Room Air 12/15/21 14:50 Oxymask 4 12/15/21 14:40 Oxymask 6 12/15/21 14:32 Oxymask 8 12/15/21 10:44 12/15/21 09:54 Room Air
[2021-12-15] MEDS ORDERED: VANCOMYCIN HCL 1,000 MG in SODIUM CHLORIDE 0.9% 250 ML IV SCH (20:00)
[2021-12-15] MEDS ORDERED: ASPIRIN 81 MG ECTAB PO SCH (21:00)
[2021-12-15] MEDS ORDERED: SENNA 8.6 MG TAB PO SCH (21:00)
[2021-12-15] MEDS ORDERED: ATORVASTATIN 10 MG TAB PO SCH (21:00)
[2021-12-15] MEDS ORDERED: METOPROLOL SUCC 25MG EXT REL TAB PO SCH (21:00)
[2021-12-15] MEDS ORDERED: MIRABEGRON ER 25 MG TAB PO SCH (21:00)
[2021-12-15] MEDS ORDERED: CHOLECALCIFEROL 5,000 UNITS 125 MCG TAB PO SCH (21:00)
[2021-12-15] MEDS ORDERED: LOSARTAN POTASSIUM 50 MG TAB PO SCH (21:00)
[2021-12-15] MEDS ORDERED: ISOSORBIDE MONO EXTENDED REL 60 MG TABCR PO SCH (21:00)
[2021-12-15] MEDS ORDERED: ISOSORBIDE MONO EXTENDED REL 30 MG TABCR PO SCH (21:00)
[2021-12-15] MEDS: ARTIFICIAL TEARS OP SCH (22:06)
[2021-12-15] MEDS: cycloSPORINE (RESTASIS) OP SCH (22:06)
[2021-12-15] MEDS: DOCUSATE SODIUM 100 MG CAP PO SCH (22:07)
[2021-12-15] MEDS: ACETAMINOPHEN 500 MG TAB PO SCH (22:08)
[2021-12-16 06:09] LABS: Basophils # (auto) 0.01 K/uL (0-0.2); Basophils % (auto) 0.1 %; Hematocrit (blood only) 30.4 % (34.1-44.9); Hemoglobin 10.1 g/dl (12.0-16.0); Immature Granulocytes # (auto) 0.03 K/uL (0.00-0.02); Immature Granulocytes % (auto) 0.3 %; Lymphocytes # (auto) 0.67 K/uL (1.2-3.4); Lymphocytes % (auto) 7.8 %; Mean Corpuscular Hemoglobin 32.6 pg (25.0-34.0); Mean Corpuscular Hgb Conc 33.2 g/dL (32.0-36.0); Mean Corpuscular Volume 98.1 fL (80.0-100.0); Mean Platelet Volume 9.9 fL (9.4-12.3); Monocytes # (auto) 0.75 K/uL (0.24-0.82); Monocytes % (auto) 8.7 %; Neutrophils # (auto) 7.14 K/uL (1.4-6.5); Neutrophils % (auto) 83.1 %; Platelet Count 205 K/uL (130-400); RDW Coefficient of Variation 12.8 % (11.5-14.5); RDW Standard Deviation 45.7 fL (36.4-46.3)
[2021-12-16] MEDS: ACETAMINOPHEN 500 MG TAB PO SCH ×2 (06:22→13:53)
[2021-12-16 06:35] LABS: Creatinine Clr Calc Pharmacy 86.7 ml/min; Est GFR (African American) 106.6 ml/min; Potassium 3.8 mmol/L (3.5-5.1)
[2021-12-16] MEDS: DOCUSATE SODIUM 100 MG CAP PO SCH (08:05)
[2021-12-16] MEDS: ARTIFICIAL TEARS OP SCH ×2 (08:11→13:20)
[2021-12-16] MEDS: cycloSPORINE (RESTASIS) OP SCH (08:11)
[2021-12-16] MEDS ORDERED: MULTIVITAMIN TAB PO SCH (09:00)
[2021-12-16] MEDS ORDERED: TOBRAMYCIN/DEXAMETHASONE OPH OINT 3.5 GM TUBE OP SCH (09:00)
--- NOTE | 2021-12-16 09:10 | Orthopedic Progress Note ---
Date of Service December 16, 2021 Assessment & Plan (1) Primary osteoarthritis, right shoulder: Plan: Postop day 1 status post right reverse TSA PT/OT protocols. Nonweightbearing right upper extremity. DVT prophylaxis-enoxaparin daily, SCDs Pain management as written. DC planning-patient is hoping to go to [facility] if possible. Question of longterm facility if not approved for [facility]. Admission and Anticipated Discharge Date Admission Date: December 15, 2021 Subjective Postop day 1 Patient sitting up in her chair at the bedside. She is just finished eating her breakfast. She is feeling well today. Pain is fairly well controlled. Not experiencing any shortness of breath, chest pain, lightheadedness. Just that she would like to go to [facility] if possible. Physical Exam Physical Exam: Dressings are clean, dry, and intact. Sling is in place. She is nontender at the right elbow and wrist. Good wrist range of motion as well as good finger range of motion at this time. Sensation is intact. Cap refills less than 2 seconds. Results & Data ([facility]) Vital Signs (Past 12 Hours) Vital Signs Temp Pulse Resp BP Pulse Ox O2 Del Method 12/16/21 07:36 36.7 C 74 18 152/78 H 93 Room Air 12/16/21 04:11 36.6 C 97 H 16 138/82 97 Room Air 12/15/21 22:13 36.4 C L 78 14 194/111 H 96 Laboratory Results Laboratory Results WBC 8.60 K/ul (4.8-10.8) 12/16/21 05:18 RBC 3.10 M/uL (3.93-5.22) L 12/16/21 05:18 Hgb 10.1 g/dl (12.0-16.0) L 12/16/21 05:18 Hct 30.4 % (34.1-44.9) L 12/16/21 05:18 MCV 98.1 fL (80.0-100.0) 12/16/21 05:18 MCH 32.6 pg (25.0-34.0) 12/16/21 05:18 MCHC 33.2 g/dL (32.0-36.0) 12/16/21 05:18 RDW Std Deviation 45.7 fL (36.4-46.3) 12/16/21 05:18 RDW Coeff of Raul 12.8 % (11.5-14.5) 12/16/21 05:18 Plt Count 205 K/uL (130-400) 12/16/21 05:18 MPV 9.9 fL (9.4-12.3) 12/16/21 05:18 Immature Gran % (Auto) 0.3 % 12/16/21 05:18 Neut % (Auto) 83.1 % 12/16/21 05:18 Lymph % (Auto) 7.8 % 12/16/21 05:18 Lares % (Auto) 8.7 % 12/16/21 05:18 Eos % (Auto) 0.0 % 12/16/21 05:18 Baso % (Auto) 0.1 % 12/16/21 05:18 Neut # (Auto) 7.14 K/uL (1.4-6.5) H 12/16/21 05:18 Lymph # (Auto) 0.67 K/uL (1.2-3.4) L 12/16/21 05:18 Lares # (Auto) 0.75 K/uL (0.24-0.82) 12/16/21 05:18 Eos # (Auto) 0.00 K/uL (0-0.50) 12/16/21 05:18 Baso # (Auto) 0.01 K/uL (0-0.2) 12/16/21 05:18 Immature Gran # (Auto) 0.03 K/uL (0.00-0.02) H 12/16/21 05:18 Sodium 135 mmol/L (136-145) L 12/16/21 05:18 Potassium 3.8 mmol/L (3.5-5.1) 12/16/21 05:18 Chloride 105 mmol/L (98-107) 12/16/21 05:18 Carbon Dioxide 24 mmol/L (21-32) 12/16/21 05:18 Anion Gap 6 (3-11) 12/16/21 05:18 BUN 17 mg/dl (6-23) 12/16/21 05:18 Creatinine 0.46 mg/dl (0.6-1.2) L 12/16/21 05:18 Est Cr Clr Drug Dosing 86.7 ml/min 12/16/21 05:18 Est GFR ( Amer) 106.6 ml/min 12/16/21 05:18 Est GFR (Non-Af Amer) 92.0 ml/min 12/16/21 05:18 BUN/Creatinine Ratio 37.0 (10-20) H 12/16/21 05:18 Glucose 113 mg/dl (70-99(Fasting)) H 12/16/21 05:18 Calcium 8.0 mg/dl (8.5-10.1) L 12/16/21 05:18 SARS-CoV-2, RNA, NAAT NEGATIVE (NEGATIVE) 12/15/21 09:33 Impressions Shoulder X-Ray 12/15/21 14:31 XR shoulder RT min 2V routine CLINICAL HISTORY: Post shoulder surgery. Status post total shoulder replacement COMPARISON STUDY: No previous studies for comparison. TECHNIQUE: 2 right shoulder views FINDINGS: The patient is status post total shoulder replacement with humeral head and glenoid components. The prosthetic components are in anatomic alignment with no acute abnormality identified. Skin isabel are present from the recent procedure. IMPRESSION: 1. Status post total shoulder replacement ACT 112: Negative or not required by law. Electronically signed by: Johnathan Wylie M.D. 12/15/2021 3:04 PM
[2021-12-16] MEDS: oxyCODONE HCL IR 5 MG TAB (IMMEDIATE RELEASE) PO PRN (12:10)
--- NOTE | 2021-12-16 13:06 | Hospitalist Progress Note ---
Date of Service December 16, 2021 Assessment & Plan (1) Primary osteoarthritis, right shoulder: Plan: POD#[address] Dhillon Activity and wound care orders as per ortho Pain control with bowel regimen PT/OT Monitor H/H for acute blood loss anemia and transfuse blood products PRN- expected H/H this am EBL 75cc (2) CAD (coronary artery disease): Plan: chronic, stable, no chest pain or SOB. Cont current medical therapy. Continue beta-isauro, statin, nitrate. Noted intolerance to aspirin. (3) Aortic valve sclerosis: Plan: Preop echo showed EF 60 to 64%, grade 1 diastolic dysfunction, moderately calcified aortic valve without stenosis (4) HTN (hypertension): Plan: BP mildly elevated, likely situational Continue home doses of isosorbide, metoprolol, losartan, make adjustments as needed (5) DVT prophylaxis: Plan: ASA 81mg BID ordered by ortho however patient has been intolerant in the past --Ortho notified of intolerance Thank you for this consultation. She is stable for discharge from a medicine perspective. You can reach a member of the [facility] Hospitalist Team 12/12 via the [facility] Hospitalist role in [place] Text. Sydney Reed, [facility] Hospitalist Admission and Anticipated Discharge Date Admission Date: December 15, 2021 Subjective Postop day 1 Reports her pain is controlled on oral pain medications Reports chronic finger numbness with no new changes post operatively Denies chest pain or SOB Tolerating PO Afebrile Review of Systems Review of Systems: All systems were reviewed and negative except as indicated on subjective above. Physical Exam Physical Exam: CONSTITUTIONAL: WNWD, vitals as above, generally well- appearing, NAD EYES: normal conjunctivae, no scleral icterus, ENT: external ear and nose normal, MMM NECK: trachea midline, RESPIRATORY: clear to auscultation bilaterally, no crackles, rales or wheezes, normal respiratory effort CARDIOVASCULAR: regular rate and rhythm, S1 and 2 heard without murmurs, gallops or rubs, no JVD, no peripheral edema, CHEST: inspection of chest was normal GASTROINTESTINAL: soft, nontender, ND MUSCULOSKELETAL: moves all extremities equally, head is normocephalic and atraumatic, SKIN: warm and dry, right shoulder in sling, incision site not evaluated as under surgical dressing. NEUROLOGIC: CN 2-12 grossly intact, no sensory deficit, normal cognition, normal speech, no tremor PSYCHIATRIC: alert cooperative and oriented to person, place and time. Euthymic mood, makes good eye contact, language grossly intact, recent and remote memory grossly intact. Results & Data Results & Data ([facility]) Vital Signs (Past 12 Hours) Vital Signs Temp Pulse Resp BP Pulse Ox O2 Del Method 12/16/21 07:36 36.7 C 74 18 152/78 H 93 Room Air 12/16/21 04:11 36.6 C 97 H 16 138/82 97 Room Air Laboratory Results Short CBC 12/16/21 Range/Units 05:18 WBC 8.60 (4.8-10.8) K/ul Hgb 10.1 L (12.0-16.0) g/dl Hct 30.4 L (34.1-44.9) % Plt Count 205 (130-400) K/uL BMP 12/16/21 05:18 Sodium 135 L Potassium 3.8 Chloride 105 Carbon Dioxide 24 BUN 17 Creatinine 0.46 L Glucose 113 H Calcium 8.0 L Medications Administered Current Inpatient Medications Acetaminophen (Acetaminophen 500 Mg Tab) 1,000 mg PO Q8 FRIEDA Stop: 01/14/22 21:59 Last Admin: 12/16/21 06:22 Dose: 1,000 mg Artificial Tears (Artificial Tears) 1 drops OP TID FRIEDA Stop: 01/14/22 20:59 Last Admin: 12/16/21 08:11 Dose: 1 drops Atorvastatin Calcium (Atorvastatin 10 Mg Tab) 10 mg PO HS FRIEDA Stop: 01/14/22 20:59 Last Admin: 12/15/21 22:06 Dose: 10 mg Bisacodyl (Bisacodyl 10 Mg Supp) 10 mg IA DAILY PRN PRN Reason: Constipation Stop: 01/14/22 15:18 Cyclosporine (Cyclosporine (Restasis)) 1 drops OP BID FRIEDA Stop: 01/14/22 20:59 Last Admin: 12/16/21 08:11 Dose: 1 drops Docusate Sodium (Docusate Sodium 100 Mg Cap) 100 mg PO BID FRIEDA Stop: 01/14/22 20:59 Last Admin: 12/16/21 08:05 Dose: 100 mg Enoxaparin Sodium (Enoxaparin Inj 40 Mg/0.4 Ml Syr) 40 mg SQ Q24H FRIEDA Stop: 01/15/22 17:59 Hydromorphone HCl (Hydromorphone Inj 0.5 Mg/0.5 Ml Syr) 0.25 mg IV Q4H PRN PRN Reason: Pain or Pre PT Stop: 12/29/21 15:18 Isosorbide Mononitrate (Isosorbide [place] Extended Rel 60 Mg Tabcr) 60 mg PO [facility] Stop: 01/14/22 20:59 Last Admin: 12/15/21 22:07 Dose: 60 mg Losartan Potassium (Losartan Potassium 50 Mg Tab) 50 mg PO [facility] Stop: 01/14/22 20:59 Last Admin: 12/15/21 22:07 Dose: 50 mg Magnesium Hydroxide (Magnesium Hydroxide Susp 30 Ml Udc) 30 ml PO Q6H PRN PRN Reason: Constipation Stop: 01/14/22 15:18 Metoclopramide HCl (Metoclopramide Hcl Inj 5 Mg/Ml 2 Ml Vial) 10 mg IV Q6H PRN PRN Reason: Nausea And Vomiting Stop: 01/14/22 15:18 Metoprolol Succinate (Metoprolol Succ 25mg Ext Rel Tab) 25 mg PO [facility] Stop: 01/14/22 20:59 Last Admin: 12/15/21 22:08 Dose: 25 mg Mirabegron (Mirabegron Er 25 Mg Tab) 50 mg PO [facility] Stop: 01/14/22 20:59 Last Admin: 12/15/21 22:08 Dose: 50 mg Multivitamins (Multivitamin Tab) 1 tab PO QAM [facility] Stop: 01/15/22 08:59 Last Admin: 12/16/21 08:05 Dose: 1 tab Naloxone HCl (Naloxone Hcl 0.4 Mg/1 Ml Vial/Carp) 0.1 mg IV Q5M PRN PRN Reason: Oversedation/Resp Depression Stop: 01/14/22 15:18 Ondansetron HCl (Ondansetron Inj 2 Mg/Ml 2 Ml Vial) 4 mg IV Q6H PRN PRN Reason: Nausea And Vomiting Stop: 01/14/22 15:18 Oxycodone HCl (Oxycodone Hcl Ir 5 Mg Tab (Immediate Release)) 5 mg PO Q4H PRN PRN Reason: Pain or Pre PT Stop: 12/29/21 15:18 Last Admin: 12/16/21 12:10 Dose: 5 mg Sennosides (Senna 8.6 Mg Tab) 17.2 mg PO HS FRIEDA Stop: 01/14/22 20:59 Last Admin: 12/15/21 22:08 Dose: 17.2 mg Tobramycin/Dexamethasone (Tobramycin/Dexamethasone Oph Oint 3.5 Gm Tube) 1 appln OP DAILY FRIEDA Stop: 01/15/22 08:59 Last Admin: 12/16/21 08:11 Dose: Not Given Vitamin D (Cholecalciferol 5,000 Units 125 Mcg Tab) 5,000 units PO HS FRIEDA Stop: 01/14/22 20:59 Last Admin: 12/15/21 22:06 Dose: 5,000 units
[2021-12-16] MEDS ORDERED: ENOXAPARIN INJ 40 MG/0.4 ML SYR SQ SCH (18:00)
== END 2021-12-16 15:59 | DRG 483 ==
LOC: ASU 09:06 → 3E 14:31